=== PATIENT | male | born 1955 | race Caucasian/White ===

== ENCOUNTER → 2016-09-21 | Outpatient (CLI) | payer BC ==
[~2016-09-21] MED LIST: ATEN-173 PO; CHOL1TAB42 PO; DABI150C PO; FLEC100T21 PO; GLC500 PO; LPT/40 PO; MCRK20 PO; MULTTAB58 PO; OMEG10007 PO; RXC5 PO
--- NOTE | 2016-09-22 06:26 | SPLIT NIGHT TECHNICIAN REPORT ---
[facility] Split Night Polysomnogram - Broomcorn Sorter Report Study date: 09/21/2016 Referring Physician: KRISTEN SALGUERO DO, DO Name: TIGRE WHITT Broomcorn Sorter: HUSEYIN Hutchison. Date of : 1955 Height: 61 years, Height 6' 0" Sex: Male Weight: 135.7 kgs Age: 61 Neck Circum: 21 inches BMI: Medications: Atenolol, Atorvastatin, Fish Oil, Flecainide, Metformin, Pradaxa, Vitamin D Patient History 61 yr. old male here for a diagnostic sleep study. Patient complains of loud snoring and witnessed apneas. Patients [place] sleepiness scale score is 16/24. Parameters Monitored NPSG: E1-M2, E2-M1, Fp1-M2, Fp2-M1, F3-M2, F4-M2, F4-M1, C3-M2, C4-M2, C4-M1, O1-M2, O2-M2, O2-M1, T3-M2, T4-M1, P3-M2, P4-M1, CHIN1, CHIN2, HR, EKG, Legs, PFLOW, SNOR, FLOW, CFLOW, Tidal Volume, THOR, ABDO, SpO2, PLTH, CPRESS, ETCO2 Wave, ETCO2, pH SLEEP SUMMARY DATA DIAGNOSTIC TREATMENT Lights Out: 11:01:18 PM 1:51:18 AM Lights On: 1:43:18 AM 5:59:48 AM Total Recording Time (TRT): 162.0 min. 249.0 min. Total Sleep Time (TST): 124.0 min. 185.0 min. NREM Time: 105.0 min. 127.5 min. REM Time: 19.0 min. 57.5 min. Sleep Period Time (SPT): 130.0 min. 194.5 min. Sleep Efficiency (SE): 77 % 74 % Sleep Latency: 32.0 min. 54.0 min. Arousal Index: 9.2 4.9 PAP Treatment Levels: 4, 5, 6, 7, 8 * Optimal Pressure(s) SLEEP STAGING DATA DIAGNOSTIC TREATMENT Duration (min) TST % Duration (min) TST % Stage Wake: 38.0 min. -- 63.5 min. -- WASO: 6.0 min. -- 9.5 min. -- NREM: 105.0 min. 85 % 127.5 min. 69 % Stage N1: 10.5 min. 8 % 17.5 min. 9 % Stage N2: 88.0 min. 71 % 86.5 min. 47 % Stage N3: 6.5 min. 5 % 23.5 min. 13 % REM: 19.0 min. 15 % 57.5 min. 31 % POSITIONAL DATA Event Count Index Event Count Index Supine: 25 95.7 1 1.6 Supine NREM: 25 95.7 1 1.6 Supine REM: N/A N/A N/A N/A Non-Supine: 25 13.8 18 7.3 Non-Supine NREM: 12 8.1 8 5.3 Non-Supine REM: 13 41.1 10 10.4 AROUSAL SUMMARY DATA: Event Count Index Event Count Index Apnea Arousals: 8 7.7 0 0.0 Hypopnea Arousals: 1 0.5 5 1.6 Snore Arousals: 4 1.9 3 1.0 PLM Arousals: 3 1.5 2 0.6 Non-Specific Arousals: 0 0.0 1 0.3 Total Arousals: 19 9.2 15 4.9 MYOCLONUS (PLM) Event Count Index Event Count Index PLM: 206 99.7 20 6.5 PLM AROUSAL: 3 1.5 2 0.6 PLM W/O AROUSAL 206 99.7 18 5.8 PLM W/RESP EVENT 4 0.0 0 0.0 MYOCLONUS (PLM) Event Count Index Event Count Index LM: 3 18.4 30 9.7 LM AROUSAL: 3 1.5 5 1.6 LM W/O AROUSAL LM W/RESP EVENT LM NON SPECIFIC 213 103.1 41 13.3 HEART RATE DATA DIAGNOSTIC TREATMENT Sleep (bpm): 59 59 REM (bpm): 84 92 NREM (bpm): 91 92 Tachycardia Count: 0 0 Tachycardia Duration: 0.00 0 Bradycardia Count: 0 0 Bradycardia Duration: 0.00 0 DIAGNOSTIC PORTION TREATMENT PORTION RESPIRATORY DATA Event Count Index Event Count Index AHI: -- 24.2 -- 6.2 RDI: -- 24.2 -- 6 Obstructive Apnea: 16 7.7 0 0.0 Central Apnea: 0 0.0 0 0.0 Mixed Apnea: 0 0.0 0 0.0 Hypopnea: 34 16.5 19 6.2 RERA: 0 0.0 0 0.0 Total Apneas: 16 7.7 0 0.0 RESPIRATORY DATA REM NREM SLEEP REM NREM SLEEP Supine Position: Obstructive Apneas: N/A 16 16 N/A 0 0 Central Apneas: N/A 0 0 N/A 0 0 Mixed Apneas: N/A 0 0 N/A 0 0 Hypopneas: N/A 9 9 N/A 1 1 RERA N/A 0 0 N/A 0 0 Total Supine Events: N/A 25 25 N/A 1 1 Supine AHI: N/A 95.7 95.7 N/A 1.6 1.6 Supine RDI: N/A 95.7 95.7 N/A 1.6 1.6 REM NREM SLEEP REM NREM SLEEP Non-Supine Position: Obstructive Apneas: 0 0 0 0 0 0 Central Apneas: 0 0 0 0 0 0 Mixed Apneas: 0 0 0 0 0 0 Hypopneas: 13 12 25 10 8 18 RERA 0 0 0 0 0 0 Total Supine Events: 13 12 25 10 8 18 Supine AHI: 41.1 8.1 13.8 10.4 5.3 7.3 Supine RDI: 41.1 8.1 13.8 10.4 5.3 7.3 OXYGEN DESTAURATION DATA: Event Count Index Event Count Index REM Desaturations: 17 53.7 11 11.5 NREM Desaturations: 38 21.7 17 8.0 SNORE DATA DIAGNOSTIC TREATMENT Snore Time: 17.0 2:45:18 AM Snore TST%: 7 10 Snore Arousal Count: 4 3 Snore Arousal Index: 1.9 1.0 Desaturation Event Summary: Minimum %SpO2 Event Count Mean/Min/Max Duration(sec.) Desaturation Index % Time In Bed > 90 99 24.2 / 4.0 / 58.3 18.7 77.7 86 - 90 14 29.5 / 11.0 / 59.0 11.3 18.2 81 - 85 10 22.7 / 7.8 / 52.5 50.5 2.9 76 - 80 3 24.3 / 7.8 / 52.0 39.3 1.1 71 - 75 0 N/A 0.0 0.0 66 - 70 0 N/A 0.0 0.0 61 - 65 0 N/A 0.0 0.0 56 - 60 0 N/A 0.0 0.0 51 - 55 0 N/A 0.0 0.0 < 50 0 N/A 0.0 0.0 OXYGEN SATURATION DATA DIAGNOSTIC TREATMENT SpO2 Mean Sleep: 90 % 92 % SpO2 Mean REM: 84 % 92 % SpO2 Mean NREM: 91 % 92 % SpO2 Minimum Sleep: 74 % 81 % SpO2 Minimum REM: 74 % 81 % SpO2 Minimum NREM: 82 % 87 % Time Below 90% (TST): 24.5 9.2 Time Below 88% (TST): 17.8 4.1 Total REM NREM Awake <50% 0.0 min. 0.0 min. 0.0 min. 0.0 min. 51 - 60% 0.0 min. 0.0 min. 0.0 min. 0.0 min. 61 - 70% 0.0 min. 0.0 min. 0.0 min. 0.0 min. 71 - 80% 4.7 min. 4.7 min. 0.0 min. 0.0 min. 81 - 90% 86.4 min. 22.6 min. 57.7 min. 6.0 min. 91 - 100% 318.3 min. 49.1 min. 174.8 min. 94.4 min. Average 92 90 92 94 Minimum SpO2 74 74 82 84 Desaturation Event Index 17.1 22.0 14.2 20.7 # Desat. Events below 89% 44 22 18 4 Time(%) with Saturation below 89% 6.4 5.3 0.9 0.2 Time(min.) with Saturation below 89% 26.1 21.7 3.5 0.9 Recording Broomcorn Sorter Comments: Mr. Whitt slept in the right, left, and supine positions. No cardiac arrhythmia. PLMs noted. No bruxism noted. Snoring was noted and scored as a 3 on a scale of 0 through 5. (0=no snoring, 5=snoring loud enough to be heard through a closed door or down the [address]acy way) At 1:51 am , Mr. Whitt met specific Split-Night criteria during the diagnostic portion of this study. CPAP was initiated at +4 CMH2O room air and up-titrated to a level of +8 CMH2O Cflex 2 . A ResMed fox FX wide nasal mask , was used during titration. Mr. Whitt did not wake to use the restroom during the night. Mr. Whitt stated, The mask took some getting used to, but finally got to sleep. The final report will be interpreted and signed by a sleep physician. The completed physician report will then be placed in the patient medical record. Therapy Event: Therapy (cm H20) 0 4 5 6 7 8 Total Time at Pressure (min.) 162.0 92.9 54.6 7.0 44.1 49.9 TST at Pressure (min.) 124.0 31.9 53.6 7.0 43.6 48.9 # Periods 1 1 1 1 1 1 Sleep Onset (min.) 32.0 54.0 0.0 0.0 0.0 0.0 REM Onset (min.) 143.0 N/A 44.6 0.0 0.0 N/A Sleep Efficiency % 76 34 98 100 98 98 Wakefulness (%) 23.5 65.7 1.8 0.0 1.1 2.0 Wakefulness (min.) 38.0 61.0 1.0 0.0 0.5 1.0 NREM 1 (%) 6.5 11.3 1.8 0.0 5.8 6.9 NREM 1 (min.) 10.5 10.5 1.0 0.0 2.6 3.4 NREM 2 (%) 54.3 23.0 57.0 0.0 1.1 67.1 NREM 2 (min.) 88.0 21.4 31.1 0.0 0.5 33.5 NREM 3 (%) 4.0 0.0 21.1 0.0 0.0 24.0 NREM 3 (min.) 6.5 0.0 11.5 0.0 0.0 12.0 REM (%) 11.7 0.0 18.3 100.0 91.9 0.0 REM (min.) 19.0 0.0 10.0 7.0 40.5 0.0 # Arousals 19 5 1 0 7 2 Arousal Index 9.2 9.4 1.1 0.0 9.6 2.5 # Snore 706 153 480 37 19 9 Snore Index 341.6 287.9 537.0 319.3 26.1 11.0 AHI 24.2 15.1 6.7 0.0 5.5 1.2 AHI Supine 95.7 N/A N/A N/A N/A 1.6 AHI Non-Supine 13.8 15.1 6.7 0.0 5.5 0.0 NREM AHI 21.1 15.1 0.0 N/A 0.0 1.2 REM AHI 41.1 N/A 36.0 0.0 5.9 N/A RDI 24.2 15.1 6.7 0.0 5.5 1.2 # Obstructive 16 0 0 0 0 0 # Central Ap 0 0 0 0 0 0 # Mixed 0 0 0 0 0 0 # Hypopneas 34 8 6 0 4 1 RERAS 0 0 0 0 0 0 Total Respiratory Events 50 8 6 0 4 1 Time Below SpO2 89.00% (min.) 19.3 0.2 4.8 1.0 0.0 0.0 Mean NREM SpO2 (%) 91 92 93 N/A 94 92 Mean REM SpO2 (%) 84 N/A 88 91 93 N/A Mean Sleep SpO2 (%) 90 92 92 91 93 92 Min NREM SpO2 (%) 82 87 91 N/A 91 89 Min REM SpO2 (%) 74 N/A 81 85 90 N/A Position Supine (min.) 15.7 0.0 0.0 0.0 0.0 36.4 Position Non-supine (min.) 108.3 31.9 53.6 7.0 43.6 12.5 LM Index Sleep 118.1 20.7 22.4 8.6 13.8 9.8 LM Index NREM 133.1 20.7 26.1 N/A 39.1 9.8 LM Index REM 34.7 N/A 6.0 8.6 11.8 N/A Mean Heart Rate (bpm) 59 59 59 61 60 56 Min Heart Rate (bpm) 53 55 55 59 54 51
--- NOTE | 2016-09-23 08:24 | POLYSOMNOGRAPH REPORT ---
CLINICAL DATA: The patient is a 61-year-old male who has chief complaints of snoring and observed apneas. He has a history of atrial fibrillation, diabetes and hypertension. His BMI is severely elevated at 40.6. His [place] Sleepiness Score is 16 out of a possible 24. SLEEP ARCHITECTURE: During the diagnostic portion of the study, the patient had a sleep period time of 130 minutes and a total sleep time of 124 minutes. The sleep latency was modestly prolonged at 32 minutes. There were 105 minutes during non-REM sleep and 19 minutes during REM sleep. Sleep consisted of stage N1 8%, stage N2 71%, stage N3 5%, and stage REM 15%. The arousal index was 9.2. During the therapeutic portion of the study when the patient was treated with nasal CPAP the sleep period time was 194.5 minutes. Total sleep time was 185 minutes. Sleep efficiency was 74%. The sleep latency was 54 minutes. Sleep consisted of stage N1 9%, stage N2 47%, stage N3 13%, and stage REM 31%. AROUSAL DATA: During the diagnostic portion of the study, the patient had a total of 19 arousals including 8 apnea arousals, 1 hypopnea arousal, 4 snoring arousals and 3 PLM arousals. The arousal index was 9.2. During the therapeutic portion of the study, the patient had 15 arousals including 5 hypopnea arousals, 3 snoring arousals, 2 PLM arousals, and 1 nonspecific arousal. The arousal index was 4.9. PLM DATA: During the diagnostic portion of the study, the patient had a total of 206 PLMs for an index of 99.7. During the therapeutic portion of the study the patient had a total of 20 PLMs for an index of 6.5. EKG: The cardiac rates ranged from 59-92 beats per minute. The rhythm was normal sinus. No arrhythmia was noted. RESPIRATORY DATA: During the diagnostic portion of the study, the patient had a total of 16 obstructive apneas and 34 hypopneas for an apnea hypopnea index of 24.2 events per hour. This would reflect moderate sleep apnea. During the therapeutic portion of the study, the patient had a total of 19 hypopneas with 0 apneas. The apnea hypopnea index was 6.2 events per hour. At the final pressure of 8 cm the patient had an apnea hypopnea index of only 1.2 events per hour. OXIMETRY DATA: During the diagnostic portion of the study, the mean saturation was 90%. The lowest saturation was 74% on this did occur during REM sleep. There was a total of 17.8 minutes with saturations less than 88%. During the therapeutic portion of the study, the mean saturation was 92%. The minimum saturation was 81%, again during REM sleep. There was only 4.1 minutes with saturations less than 88%. SCOURER'S COMMENTS AND TREATMENT SUMMARY: The patient slept in the right, left, and supine positions. PLMs were noted. No bruxism was noted. Snoring was noted and scored as a 3 on a scale of 0 through 5. The patient met specific split night criteria during the diagnostic portion of the study. CPAP was initiated at 4 cm and up titrated to a level of 8 cm. IMPRESSIONS: 1. Obstructive sleep apnea -- moderate -- resolved with nasal CPAP at 8 cm. 2. Periodic limb movement disorder. COMMENTS: The patient underwent a split night study because he had significant obstructive sleep apnea. He had multiple comorbidities for sleep apnea including hypertension, diabetes, and paroxysmal atrial fibrillation. He had difficulty initiating sleep once CPAP was started. Ultimately, he did fall asleep then slept well thereafter. There was some degree of REM rebound. His sleep was fairly well consolidated. At the final pressure he had no significant sleep apnea. RECOMMENDATIONS: 1. It is advised that the patient be treated with nasal CPAP at 8 cm with C-Flex at +2. 2. He is to be started on a ResMed [place] FX wide nasal mask. 3. Await reduction program is advised in light of the elevation of body mass index. 4. If possible the patient should avoid sleeping in the supine position. 5. The patient's given history is that he has a dog who sleeps on the bed with him and disturbs his sleep. It would be suggested that the dog not be allowed onto his bed. 6. It is advised that the patient should avoid alcohol for approximately 3-4 hours before bed. 7. The patient should be seen in followup between 30 and 90 days after receiving his CPAP. JONES
== END | disposition home or self-care (01) ==
LOC: C.NEUR 20:00
PROVIDERS: ATTEND Internal Medicine Pulmonary Disease
DX: G47.33 Obstructive sleep apnea (adult) (pediatric) (principal)

== ENCOUNTER → 2016-10-06 | Outpatient (CLI) | payer BC ==
[~2016-10-06] VITALS: Ht 182.9 cm; Wt 137.8 kg
[2016-10-06 11:28] VITALS: BP 166/88; PULSE 71; Ht 182.9 cm; Wt 137.8 kg
== END | disposition home or self-care (01) ==
LOC: C.NEUR 11:22
PROVIDERS: ATTEND Internal Medicine Pulmonary Disease
DX: G47.33 Obstructive sleep apnea (adult) (pediatric) (principal); E66.9 Obesity, unspecified

== ENCOUNTER → 2016-11-01 | Day surgery (SDC) | payer BC ==
[2016-10-25 13:03] VITALS: Ht 182.9 cm; Wt 133.2 kg
[~2016-11-01] VITALS: Ht 182.9 cm; Wt 133.2 kg
[~2016-11-01] MED LIST changes: +LIDOCAINE HCL 2% 2 ML VIAL (20MG/ML) ONE; -MCRK20 PO; +MIDAZOLAM HCL 1 MG/ML 2ML VIAL ONE; +PROPOFOL IV EMULSION 10 MG/ML 20 ML VIAL IV ONE; -RXC5 PO; +SODIUM CHLORIDE 0.9% 500ML 500 ML IV ONE
--- NOTE | 2016-11-01 15:06 | Endo History and Physical ---
History & Physical Date of Service: Nov 01, 2016. Chief Complaint: history of polyps Referring Physician: MAHSA Mills III History of Present Illness 61 yo CM who presents for history of colon polyps. Past Medical History Atrial Fibrillation Past Surgical History Hx Cardiac Surgery: No Hx Internal Defibrillator: No Hx Pacemaker: No Hx Abdominal Surgery: No Hx of Implantable Prosthesis: No Hx Post-Op Nausea and Vomiting: No Hx Cancer Surgery: No Hx Thoracic Surgery: No Hx Orthopedic: No Hx Urinary Tract Surgery: No Family History None Social History Smoking Status: Former Smoker Hx Substance Use: No Hx Alcohol Use: Yes (1 CASE BEER/WEEK) Allergies Coded Allergies: Clarithromycin (Verified Allergy, Mild, HALLUCINATIONS, 10/25/16) Current Medications Reported Home Medications Medications Dose Route/Sig Max Daily Dose Days Date Category Multivitamin (Multiple Vitamin) 1 Tab Tab 1 Tab PO QAM 10/25/16 Reported Vitamin D (Cholecalciferol) 5,000 Unit Tab 1 Tab PO QAM 10/25/16 Reported [place]-3 (Fish Oil) 1 Ea Cap 1 Cap PO BID 10/25/16 Reported Metformin HCl 500 Mg Tab 1 Tab PO BID 10/25/16 Reported Tenormin (Atenolol) 25 Mg Tab 2 Tabs PO QAM 10/25/16 Reported Tenormin (Atenolol) 25 Mg Tab 25 Mg PO QPM 10/25/16 Reported Lipitor (Atorvastatin) 40 Mg Tab 40 Mg PO HS 04/23/13 Reported Pradaxa (Dabigatran Etexilate Mesylate) 150 Mg Cap 150 Mg PO BID 04/23/13 Reported Tambocor (Flecainide Acetate) 100 Mg Tab 100 Mg PO BID 04/23/13 Reported Vital Signs Weight (Kilograms): 133.18 Height (Feet): 6 Height (Inches): 0 Date Time Temp Pulse Resp B/P Pulse Ox O2 Delivery O2 Flow Rate FiO2 11/01/16 14:27 37 74 96 185/91 96 Room Air Physical Exam General Appearance: WD/WN, no apparent distress Respiratory/Chest: Auscultation: breath sounds normal Cardiovascular: Heart Auscultation: RRR Abdomen: Bowel Sounds: normal Inspection & Palpation: soft, non-distended, no tenderness, guarding & rebound Assessment and Plan Assessment: 61 yo CM who presents for history of colon polyps. Plan: Proceed with colonoscopy.
--- NOTE | 2016-11-01 16:00 | GI REPORT ---
Procedure Date: 11/01/2016 3:31 PM Procedure: Colonoscopy Indications: High risk colon cancer surveillance: Personal history of colonic polyps Medicines: Monitored Anesthesia Care Complications: No immediate complications. Estimated Blood Loss: Estimated blood loss: none. Procedure: Pre-Anesthesia Assessment: - Prior to the procedure, a History and Physical was performed, and patient medications and allergies were reviewed. The patient's tolerance of previous anesthesia was also reviewed. The risks and benefits of the procedure and the sedation options and risks were discussed with the patient. All questions were answered, and informed consent was obtained. Prior Anticoagulants: The patient has taken no previous anticoagulant or antiplatelet agents. ASA Grade Assessment: III - A patient with severe systemic disease. After reviewing the risks and benefits, the patient was deemed in satisfactory condition to undergo the procedure. After I obtained informed consent, the scope was passed under direct vision. Throughout the procedure, the patient's blood pressure, pulse, and oxygen saturations were monitored continuously. The Scope was introduced through the anus and advanced to the terminal ileum. The colonoscopy was performed without difficulty. The patient tolerated the procedure well. The quality of the bowel preparation was good. The terminal ileum, ileocecal valve, appendiceal orifice, and rectum were photographed. Findings: Five sessile polyps were found in the rectum, in the sigmoid colon and in the transverse colon. The polyps were 5 to 7 mm in size. These polyps were removed with a hot snare. Resection and retrieval were complete. Non-bleeding internal hemorrhoids were found during retroflexion. The hemorrhoids were small. Impression: - Five 5 to 7 mm polyps in the rectum, in the sigmoid colon and in the transverse colon, removed with a hot snare. Resected and retrieved. - Non-bleeding internal hemorrhoids. Recommendation: - Resume previous diet. - Continue present medications. - Repeat colonoscopy for surveillance based on pathology results. - Return to primary care physician as previously scheduled. Paul Berg, 11/01/2016 3:59:37 PM This report has been signed electronically. Note Initiated On: 11/01/2016 3:31 PM I attest to the content of the Intraoperative Record and orders documented therein, exceptions below
--- NOTE | 2016-11-01 16:01 | Discharge Instructions ---
Endoscopy Patient Instructions Date / Procedure(s) Performed Nov 01, 2016. Colonoscopy Allergy Information Coded Allergies: Clarithromycin (Verified Allergy, Mild, HALLUCINATIONS, 10/25/16) Discharge Date / Findings Nov 01, 2016. Colon polyps Rectal polyp Internal hemorrhoids Medication Instructions Stopped Medication(s): last dose Pradaxa Tuesday 08:00 OK to resume all medications today as prescribed Reported Home Medications Medications Dose Route/Sig Max Daily Dose Days Date Category Multivitamin (Multiple Vitamin) 1 Tab Tab 1 Tab PO QAM 10/25/16 Reported Vitamin D (Cholecalciferol) 5,000 Unit Tab 1 Tab PO QAM 10/25/16 Reported [place]-3 (Fish Oil) 1 Ea Cap 1 Cap PO BID 10/25/16 Reported Metformin HCl 500 Mg Tab 1 Tab PO BID 10/25/16 Reported Tenormin (Atenolol) 25 Mg Tab 2 Tabs PO QAM 10/25/16 Reported Tenormin (Atenolol) 25 Mg Tab 25 Mg PO QPM 10/25/16 Reported Lipitor (Atorvastatin) 40 Mg Tab 40 Mg PO HS 04/23/13 Reported Pradaxa (Dabigatran Etexilate Mesylate) 150 Mg Cap 150 Mg PO BID 04/23/13 Reported Tambocor (Flecainide Acetate) 100 Mg Tab 100 Mg PO BID 04/23/13 Reported Provider Instructions Activity Restrictions - No exercising or heavy lifting for 24 hours. - Do not drink alcohol the day of the procedure. - Do not drive a car or operate machinery until the day after the procedure. - Do not make any important decisions or sign important papers in 24 hours after the procedure. Following Day: - Return to full activity which may include returning to work/school. Diet Start your diet with liquids and light foods (jello, soup, juice, toast). Then eat your usual diet if not nauseated. Treatment For Common After Affects For mild abdominal pain, bloating, or excessive gas: - Rest - Eat lightly - Lie on right side Follow-Up Information Follow-up with MAHSA Mills III as scheduled Anesthesia Information What You Should Know You have had a procedure that required some medicine to reduce anxiety and discomfort. This treatment is called moderate sedation. After receiving the treatment, you may be sleepy, but you will be able to breathe on your own. The effects of the treatment may last for several hours. Follow these instructions along with Activity/Diet recommendations noted above: * Do NOT do anything where dizziness or clumsiness would be dangerous. * Rest quietly at home today, then you can be up and about tomorrow. * Have a responsible person stay with you the rest of today. * You may have had an I.V. today. If so, you may take the dressing off later today. Recommendations Call your doctor if: * Trouble breathing * Continuous vomiting for more than 24 hours * Temperature above 101 degrees * Severe abdominal pain or bloating * Pain not relieved by pain medicine ordered * There is increased drainage or redness from any incision * A large amount of rectal bleeding greater than 2-3 tablespoons. (If you had a polyp/s removed or have hemorrhoids, a small amount of blood - from the rectum is to be expected.) * You have any unanswered questions or concerns. IN THE EVENT OF A SERIOUS EMERGENCY, GO TO THE NEAREST EMERGENCY ROOM Your discharge instructions were prepared by provider Paul Berg. Patient Instructions Signature Page Seferino Whitt Patient (or Guardian) Signature/Date: I have read and understand the instructions given to me by my caregivers. Caregiver/RN/Doctor Signature/Date: The above-named patient and/or guardian has received patient instructions on this date. + Original Patient Signature Page (only) stays with chart. Please make copy for patient.
[2016-11-01 16:28] VITALS: BP 153/76; PULSE 69; O2SAT 98
--- NOTE | 2016-11-01 17:11 | Anesthesiology Progress Note ---
Anesthesia Post Op Note Date & Time Nov 01, 2016 at 17:11 Vital Signs Pain Intensity: 0 Vital Signs Past 12 Hours Date Time Temp Pulse Resp B/P Pulse Ox O2 Delivery O2 Flow Rate FiO2 11/01/16 16:28 69 18 153/76 98 Room Air 11/01/16 16:14 67 18 148/79 98 Room Air 11/01/16 16:01 70 98 141/64 98 Room Air 11/01/16 14:27 37 74 96 185/91 96 Room Air Notes Mental Status: alert / awake / arousable, participated in evaluation Pt Amnestic to Procedure: Yes Nausea / Vomiting: adequately controlled Pain: adequately controlled Airway Patency, RR, SpO2: stable & adequate BP & HR: stable & adequate Hydration State: stable & adequate Anesthetic Complications: no major complications apparent
== END | disposition home or self-care (01) ==
LOC: C.GI 14:09
PROVIDERS: ATTEND Internal Medicine
DX: Z12.11 Encounter for screening for malignant neoplasm of colon (principal); D12.3 Benign neoplasm of transverse colon; K63.5 Polyp of colon; K62.1 Rectal polyp; K64.8 Other hemorrhoids; Z87.891 Personal history of nicotine dependence

== ENCOUNTER → 2016-12-15 | Outpatient (CLI) | payer BC ==
[~2016-12-15] VITALS: Ht 182.9 cm; Wt 139.3 kg
[~2016-12-15] MED LIST changes: -LIDOCAINE HCL 2% 2 ML VIAL (20MG/ML) ONE; -MIDAZOLAM HCL 1 MG/ML 2ML VIAL ONE; -PROPOFOL IV EMULSION 10 MG/ML 20 ML VIAL IV ONE; -SODIUM CHLORIDE 0.9% 500ML 500 ML IV ONE
[2016-12-15 10:06] VITALS: BP 147/78; PULSE 71; Ht 182.9 cm; Wt 139.3 kg
== END | disposition home or self-care (01) ==
LOC: C.NEUR 09:43
PROVIDERS: ATTEND Internal Medicine Pulmonary Disease
DX: G47.33 Obstructive sleep apnea (adult) (pediatric) (principal); E66.9 Obesity, unspecified

== ENCOUNTER → 2016-12-28 | Outpatient (CLI) | payer BC ==
[2016-12-28 09:39] LABS: BASO % 0.2 %; BASO ABS # 0.01 K/uL (0-0.2); COMPLETE YES; EOS % 6.7 %; HEMATOCRIT 42.3 % (42-52); IG% 0.2 %; LYMPH % 26.7 %; LYMPH ABS # 1.11 K/uL (1.2-3.4); MEAN CORPUSCULAR HEMOGLOBIN 33.1 pg (25-34); MEAN CORPUSCULAR HGB CONC 33.1 g/dl (32-36); MEAN PLATELET VOLUME 9.3 fL (7.4-10.4); MONO % 10.1 %; NEUT % 56.1 %; PLATELET COUNT 207 K/uL (130-400); RED BLOOD COUNT 4.23 M/uL (4.7-6.1); WHITE BLOOD COUNT 4.15 K/uL (4.8-10.8)
[2016-12-28 09:53] LABS: ESTIMATED AVERAGE GLUCOSE 123 mg/dl; HA1C FLAG Normal (Normal)
[2016-12-28 09:59] LABS: ALT/SGPT 41 U/L (12-78); BLOOD UREA NITROGEN 21 mg/dl (7-18); BUN/CREATININE RATIO 21.7 (10-20); CARBON DIOXIDE 29 mmol/L (21-32); CHLORIDE 106 mmol/L (98-107); CHOLESTEROL 143 mg/dl (0-200); CREATININE 0.96 mg/dl (0.60-1.40); GLUCOSE 136 mg/dl (70-99); POTASSIUM 4.2 mmol/L (3.5-5.1); SODIUM 143 mmol/L (136-145)
[2016-12-28 10:01] LABS: ALB/GLOB RATIO 1.2 (0.9-2); ALKALINE PHOSPHATASE 72 U/L (45-117); AST/SGOT 22 U/L (15-37); CHOLESTEROL/HDL RATIO 3.2; HDL CHOLESTEROL 45 mg/dl; LDL CHOLESTEROL CALCULATED 68 mg/dl; TRIGLYCERIDES 152 mg/dl (0-150); VERY LOW DENSITY LIPOPROT CALC 30 mg/dl
[2016-12-28 10:05] LABS: CALCIUM 9.2 mg/dl (8.5-10.1)
== END | disposition home or self-care (01) ==
LOC: C.LAB1850 08:31
PROVIDERS: ATTEND Nurse Practitioner Family
DX: G47.33 Obstructive sleep apnea (adult) (pediatric) (principal); I10 Essential (primary) hypertension; E78.5 Hyperlipidemia, unspecified; I48.0 Paroxysmal atrial fibrillation; E88.81 Metabolic syndrome and other insulin resistance; E55.9 Vitamin D deficiency, unspecified; E11.9 Type 2 diabetes mellitus without complications; Z11.59 Encounter for screening for other viral diseases

== ENCOUNTER → 2017-03-23 | Outpatient (CLI) | payer BC ==
[~2017-03-23] VITALS: Ht 152.4 cm; Wt 98.0 kg
[2017-03-23 10:29] VITALS: BP 134/83; PULSE 63; BMI 40.5
[2017-03-23 11:57] VITALS: BP 100/65; PULSE 98; Ht 152.4 cm; Wt 98.0 kg
== END | disposition home or self-care (01) ==
LOC: C.NEUR 09:57
PROVIDERS: ATTEND Internal Medicine Pulmonary Disease
DX: G47.33 Obstructive sleep apnea (adult) (pediatric) (principal)

== ENCOUNTER → 2017-05-31 | Day surgery (SDC) | payer BC ==
[2017-03-17 11:04] VITALS: Ht 182.9 cm; Wt 133.2 kg
[~2017-05-31] VITALS: Ht 182.9 cm; Wt 133.2 kg
[~2017-05-31] MED LIST changes: +500ML BSS 0.3ML EPI 1:1000PF IRRIG ONE; +ACETAMINOPHEN 325 MG TAB PO PRN; +AMVISC PLUS 0.8ML SYRINGE INT OCU ONE; +ATROPINE SULFATE 0.1 MG/ML 5ML SYR IV PRN; +BSS FLUSH ONE; +CYCLOPENTOLATE HCL 1% OP SOLN PER DROP CHARGE OPL SCH; +EpHEDrine SULFATE INJ 50 MG/ML AMP IV PRN; +EpINEphrine INJ 1MG/ML AMP 1 MG/ML AMP ONE; +GATIFLOXACIN OP SOLN PER DROP CHARGE OPL SCH; +KETOROLAC 0.5% OP SOLN PER DROP CHARGE OPL SCH; +LACTATED RINGER'S 1000ML 500 ML IV SCH; +LIDOCAINE 3.5% OPH GEL PER APPLICATION CHARGE ONE; +LIDOCAINE HCL 1% MPF 2 ML VIAL ONE; +MIDAZOLAM HCL 1 MG/ML 2ML VIAL ONE; +OCUCOAT 1 ML SOLN IO ONE; +PHENYLEPHRINE HCL 2.5% OP SOLN PER DROP CHARGE OPL SCH; +POVIDONE-IODINE OP SOLN 30 ML BTL ONE; +PROPARACAINE 0.5% OP SOLN PER DROP CHARGE OPL SCH; +TOBRAMYCIN/DEXAMETHASONE OPH OINT PER APPLN CHARGE ONE; +TROPICAMIDE 1% OP SOLN PER DROP CHARGE OPL SCH
[2017-05-31] MEDS: PHENYLEPHRINE HCL 2.5% OP SOLN PER DROP CHARGE OPL SCH ×2 (06:41→07:00)
[2017-05-31] MEDS: TROPICAMIDE 1% OP SOLN PER DROP CHARGE OPL SCH ×2 (06:42→07:01)
[2017-05-31] MEDS: CYCLOPENTOLATE HCL 1% OP SOLN PER DROP CHARGE OPL SCH ×2 (06:43→07:02)
[2017-05-31] MEDS: KETOROLAC 0.5% OP SOLN PER DROP CHARGE OPL SCH ×2 (06:44→07:03)
[2017-05-31] MEDS: GATIFLOXACIN OP SOLN PER DROP CHARGE OPL SCH ×2 (06:45→07:05)
--- NOTE | 2017-05-31 07:00 | History & Physical Bridge - SC ---
H&P Re-Evaluation Bridge Note: I have examined the patient, reviewed the History & Physical and in the interval since the performance of the History & Physical I have noted the following changes of clinical significance: Diagnosis: Left Cataract Procedure: Left Cataract Removal with Lens Implant No changes noted
--- NOTE | 2017-05-31 07:44 | Discharge Instructions-SurgCtr ---
Discharge Instructions Date of Service May 31, 2017. Visit Reason for Visit: Cataract Left Eye Discharge Discharge Diagnosis / Problem: cataract Discharge Goals Goal(s): Improve function Medications Stopped Medications Name(s): METFORMIN HELD FOR THREE DAYS Activity Recommendations Activity Limitations: per Instructions/Follow-up section Anesthesia . Post Anesthesia Instructions: If you have had General Anesthesia or IV Sedation: * Do not drive today. * Resume driving when surgeon permits. * Do not make important decisions or sign legal documents today. * Call surgeon for: 1. Temperature elevations greater than 101 degrees F. 2. Uncontrollable pain. 3. Excessive bleeding. 4. Persistent nausea and vomiting. 5. Medication intolerance (nausea, vomiting or rash). * For nausea and vomiting use only clear liquids such as: tea, soda, bouillon until nausea subsides, then gradually increase diet as tolerated. * If you have any concerns or questions, call your surgeon's office. If physician is unavailable and it is an emergency, call 911 or go to the nearest emergency room. . Diet Recommendations Home Diet: resume previous diet Procedures Procedures Performed: Left Cataract Phacoemulsification With Intraocular Lens Implant Pending Studies Studies pending at discharge: no Medical Emergencies . Who to Call and When: Medical Emergencies: If at any time you feel your situation is an emergency, please call 911 immediately. . Non-Emergent Contact Non-Emergency issues call your: Inspectors And Regulatory Officers . . "Provider Documentation" section prepared by Kemal Franklin. .
--- NOTE | 2017-05-31 07:45 | [facility] Operative Report ---
Operative Report Date of Service May 31, 2017. Operative Report 1. PREOPERATIVE DIAGNOSIS: Cataract of the left eye. 2. POSTOPERATIVE DIAGNOSIS: Same. 3. PROCEDURE: Phacoemulsification with intraocular lens implantation of the left eye. SURGEON: Dr. Kemal Franklin. ANESTHESIA: Topical Lidocaine gel, 1% Non- Preserved intracameral Lidocaine, and monitored intravenous sedation. INDICATIONS FOR THE PROCEDURE: The patient is a 62 - year-old male with a history of cataract of the left eye causing significant visual impairment. The details of the proposed procedure were explained to the patient who asked appropriate questions and following discussion of all risks, benefits and alternatives agreed to have the procedure done. 4. OPERATION AND FINDINGS: DESCRIPTION OF PROCEDURE: After informed consent was obtained, the patient was brought to the Operating Room at the [facility]. The patient was placed in a supine position and then the left eye was prepped and draped in the usual sterile fashion for intraocular surgery. A drop of topical Lidocaine gel was placed in the operative eye. A wire lid speculum was then placed in the fornices. A corneal paracentesis was then created temporally. The Non-Preserved Lidocaine was then instilled into the anterior chamber. The anterior chamber was then pressurized with viscoelastic. A 2.0 mm clear corneal incision was then created temporally. A cystotome was inserted into the anterior chamber and used to create a tear in the anterior lens capsule. This capsular tear was then used to create a small flap and the flap was dragged in a counterclockwise direction in order to create a continuous curvilinear capsulorrhexis. Hydrodissection was accomplished with balanced salt solution. Phacoemulsification of the lens nucleus was then performed in a standard [id number] technique. The phaco time was 22 seconds with an average power of 7 %. The remaining cortical material was removed using irrigation aspiration. The capsular bag was then filled with viscoelastic. A B &L [id number] +15.0 diopters lens was then loaded into the injector and injected into the capsular bag. The remaining viscoelastic was removed with the irrigation aspiration handpiece. The wound was hydrated and then checked and found to be watertight. The intraocular pressure was checked and found to be adequate. The wire lid speculum was removed and the patient's face was cleaned and dried. TobraDex ointment was placed in the inferior fornix. The patient was discharged to the Recovery Room having tolerated the procedure well. There were no complications. The patient will be seen tomorrow in the office for follow-up. I attest to the content of the Intraoperative Record and any orders documented therein. Any exceptions are noted below.
[2017-05-31 07:46] VITALS: TEMP 36.7
--- NOTE | 2017-05-31 07:56 | Anesthesia Progress Nt - [facility] ---
Anesthesia Post Op Note Date & Time May 31, 2017 at 07:56 Vital Signs Pain Intensity: 0 Vital Signs Past 12 Hours Date Time Temp Pulse Resp B/P (MAP) Pulse Ox O2 Delivery O2 Flow Rate FiO2 05/31/17 07:46 36.7 69 16 153/85 (107) 95 Room Air 05/31/17 07:06 37.2 71 18 164/93 (116) 94 Room Air Notes Mental Status: alert / awake / arousable, participated in evaluation Pt Amnestic to Procedure: Yes Nausea / Vomiting: adequately controlled Pain: adequately controlled Airway Patency, RR, SpO2: stable & adequate BP & HR: stable & adequate Hydration State: stable & adequate Anesthetic Complications: no major complications apparent
[2017-05-31 08:11] VITALS: BP 165/88; PULSE 61; O2SAT 99
== END | disposition home or self-care (01) ==
LOC: X.SURG 06:15
PROVIDERS: ATTEND Ophthalmology
DX: H25.9 Unspecified age-related cataract (principal); I10 Essential (primary) hypertension; E78.5 Hyperlipidemia, unspecified; E11.36 Type 2 diabetes mellitus with diabetic cataract; E66.9 Obesity, unspecified; Z79.84 Long term (current) use of oral hypoglycemic drugs; Z79.01 Long term (current) use of anticoagulants; Z79.899 Other long term (current) drug therapy

== ENCOUNTER → 2017-07-13 | Outpatient (CLI) | payer BC ==
[~2017-07-13] MED LIST changes: -500ML BSS 0.3ML EPI 1:1000PF IRRIG ONE; -ACETAMINOPHEN 325 MG TAB PO PRN; -AMVISC PLUS 0.8ML SYRINGE INT OCU ONE; -ATROPINE SULFATE 0.1 MG/ML 5ML SYR IV PRN; -BSS FLUSH ONE; -CYCLOPENTOLATE HCL 1% OP SOLN PER DROP CHARGE OPL SCH; -EpHEDrine SULFATE INJ 50 MG/ML AMP IV PRN; -EpINEphrine INJ 1MG/ML AMP 1 MG/ML AMP ONE; -GATIFLOXACIN OP SOLN PER DROP CHARGE OPL SCH; -KETOROLAC 0.5% OP SOLN PER DROP CHARGE OPL SCH; -LACTATED RINGER'S 1000ML 500 ML IV SCH; -LIDOCAINE 3.5% OPH GEL PER APPLICATION CHARGE ONE; -LIDOCAINE HCL 1% MPF 2 ML VIAL ONE; -MIDAZOLAM HCL 1 MG/ML 2ML VIAL ONE; -OCUCOAT 1 ML SOLN IO ONE; -PHENYLEPHRINE HCL 2.5% OP SOLN PER DROP CHARGE OPL SCH; -POVIDONE-IODINE OP SOLN 30 ML BTL ONE; -PROPARACAINE 0.5% OP SOLN PER DROP CHARGE OPL SCH; -TOBRAMYCIN/DEXAMETHASONE OPH OINT PER APPLN CHARGE ONE; -TROPICAMIDE 1% OP SOLN PER DROP CHARGE OPL SCH
[2017-07-13 12:24] LABS: BASO % 0.3 %; BASO ABS # 0.02 K/uL (0-0.2); COMPLETE YES; EOS % 3.4 %; HEMATOCRIT 45.4 % (42-52); IG% 0.1 %; LYMPH % 16.2 %; LYMPH ABS # 1.09 K/uL (1.2-3.4); MEAN CELL VOLUME 98.3 fL (80-100); MEAN CORPUSCULAR HEMOGLOBIN 33.5 pg (25-34); MEAN CORPUSCULAR HGB CONC 34.1 g/dl (32-36); MEAN PLATELET VOLUME 9.8 fL (7.4-10.4); MONO % 8.9 %; NEUT % 71.1 %; PLATELET COUNT 213 K/uL (130-400); RED BLOOD COUNT 4.62 M/uL (4.7-6.1); WHITE BLOOD COUNT 6.73 K/uL (4.8-10.8)
[2017-07-13 12:48] LABS: ALT/SGPT 33 U/L (12-78); AST/SGOT 16 U/L (15-37); BLOOD UREA NITROGEN 15 mg/dl (7-18); BUN/CREATININE RATIO 15.9 (10-20); CALCIUM 8.8 mg/dl (8.5-10.1); CARBON DIOXIDE 24 mmol/L (21-32); CHLORIDE 109 mmol/L (98-107); CREATININE 0.97 mg/dl (0.60-1.40); GLUCOSE 119 mg/dl (70-99); POTASSIUM 4.1 mmol/L (3.5-5.1); SODIUM 141 mmol/L (136-145)
[2017-07-13 12:50] LABS: ALB/GLOB RATIO 1.1 (0.9-2); ALKALINE PHOSPHATASE 80 U/L (45-117); CHOLESTEROL 151 mg/dl (0-200); HDL CHOLESTEROL 50 mg/dl; LDL CHOLESTEROL CALCULATED 84 mg/dl; TRIGLYCERIDES 85 mg/dl (0-150); VERY LOW DENSITY LIPOPROT CALC 17 mg/dl
[2017-07-13 12:56] LABS: RATIO 6.5 mcg/mg (0-30.0)
[2017-07-13 12:59] LABS: ESTIMATED AVERAGE GLUCOSE 123 mg/dl; HA1C FLAG Normal (Normal)
== END | disposition home or self-care (01) ==
LOC: C.LAB1850 10:20
PROVIDERS: ATTEND Nurse Practitioner Family
DX: G47.33 Obstructive sleep apnea (adult) (pediatric) (principal); I10 Essential (primary) hypertension; E78.5 Hyperlipidemia, unspecified; E88.81 Metabolic syndrome and other insulin resistance; I48.0 Paroxysmal atrial fibrillation; E55.9 Vitamin D deficiency, unspecified; E11.9 Type 2 diabetes mellitus without complications

== ENCOUNTER → 2018-01-19 | Outpatient (CLI) | payer OTHER ==
[2018-01-19 14:49] LABS: BASO % 0.2 %; BASO ABS # 0.01 K/uL (0-0.2); EOS % 2.8 %; EOS ABS # 0.18 K/uL (0-0.5); HEMATOCRIT 41.8 % (42-52); HEMOGLOBIN 14.7 g/dL (14.0-18.0); IG# 0.01 K/uL (0.00-0.02); LYMPH % 20.8 %; LYMPH ABS # 1.34 K/uL (1.2-3.4); MEAN CELL VOLUME 96.3 fL (80-100); MEAN CORPUSCULAR HEMOGLOBIN 33.9 pg (25-34); MEAN CORPUSCULAR HGB CONC 35.2 g/dl (32-36); MEAN PLATELET VOLUME 9.5 fL (7.4-10.4); MONO % 9.8 %; MONO ABS # 0.63 K/uL (0.11-0.59); NEUT % 66.2 %; NEUT ABS # 4.28 K/uL (1.4-6.5); PLATELET COUNT 201 K/uL (130-400); RED CELL DISTRIBUTION WIDTH CV 13.6 % (11.5-14.5); RED CELL DISTRIBUTION WIDTH SD 47.7 fL (36.4-46.3); WHITE BLOOD COUNT 6.45 K/uL (4.8-10.8)
[2018-01-19 15:56] LABS: ALBUMIN 3.5 gm/dl (3.4-5.0); ALKALINE PHOSPHATASE 80 U/L (45-117); ALT/SGPT 33 U/L (12-78); AST/SGOT 20 U/L (15-37); BLOOD UREA NITROGEN 15 mg/dl (7-18); CALCIUM 8.5 mg/dl (8.5-10.1); CARBON DIOXIDE 25 mmol/L (21-32); CHOLESTEROL 136 mg/dl (0-200); CREATININE 0.92 mg/dl (0.60-1.40); GLUCOSE 111 mg/dl (70-99); LDL CHOLESTEROL CALCULATED 67 mg/dl; POTASSIUM 4.1 mmol/L (3.5-5.1); SODIUM 140 mmol/L (136-145); TOTAL PROTEIN 7.1 gm/dl (6.4-8.2)
[2018-01-20 06:30] LABS: HEMOGLOBIN A1C 6.1 % (4.5-5.6)
== END | disposition home or self-care (01) ==
LOC: C.LAB1850 12:49
PROVIDERS: ATTEND Nurse Practitioner Family
DX: G47.33 Obstructive sleep apnea (adult) (pediatric) (principal); I10 Essential (primary) hypertension; E78.5 Hyperlipidemia, unspecified; I48.0 Paroxysmal atrial fibrillation; E88.81 Metabolic syndrome and other insulin resistance; E55.9 Vitamin D deficiency, unspecified; E11.9 Type 2 diabetes mellitus without complications; F10.10 Alcohol abuse, uncomplicated

== ENCOUNTER → 2018-04-27 | Outpatient (CLI) | payer OTHER, BC ==
[~2018-04-27] VITALS: Ht 182.9 cm; Wt 140.7 kg
[2018-04-27 13:16] VITALS: BP 160/85; PULSE 74; Ht 182.9 cm; Wt 140.7 kg
== END | disposition home or self-care (01) ==
LOC: C.NEUR 12:51
PROVIDERS: ATTEND Physician Assistant
DX: G47.33 Obstructive sleep apnea (adult) (pediatric) (principal); E66.9 Obesity, unspecified

== ENCOUNTER 2024-08-21 12:38 | Observation (INO) ==
[2024-08-21 13:19] LABS: Basophils # (auto) 0.02 K/uL (0.00-0.20); Basophils % (auto) 0.3 %; Eosinophils # (auto) 0.14 K/uL (0.00-0.50); Eosinophils % (auto) 2.2 %; Hematocrit (blood only) 43.4 % (42.0-52.0); Hemoglobin 15.4 g/dl (14.0-18.0); Immature Granulocytes # (auto) 0.02 K/uL (0.01-0.20); Immature Granulocytes % (auto) 0.3 %; Lymphocytes # (auto) 1.37 K/uL (1.20-3.40); Lymphocytes % (auto) 21.7 %; Mean Corpuscular Hemoglobin 35.1 pg (25.0-34.0); Mean Corpuscular Hgb Conc 35.5 g/dL (32.0-36.0); Mean Corpuscular Volume 98.9 fL (80.0-100.0); Mean Platelet Volume 9.1 fL (9.4-12.4); Monocytes # (auto) 0.63 K/uL (0.11-0.59); Neutrophils # (auto) 4.12 K/uL (1.40-6.50); Neutrophils % (auto) 65.5 %; Platelet Count 264 K/uL (130-400); RDW Coefficient of Variation 12.9 % (11.5-14.5); RDW Standard Deviation 47.3 fL (36.4-46.3); Red Blood Count 4.39 M/uL (4.70-6.10)
--- NOTE | 2024-08-21 13:23 | XRay Report ---
XR chest 1V portable CLINICAL HISTORY: Chest pain, nonspecific TECHNIQUE: Single frontal radiograph of the chest was obtained. Comparison: Comparison is made to chest radiograph 07/09/2015 FINDINGS: Exam is limited by underpenetration. The cardiomediastinal silhouette is normal. The lungs are clear. No evidence of pleural effusion or pneumothorax. IMPRESSION: No acute chest disease. ACT 112: Negative or not required by law. Electronically signed by: Sandor Damon M.D. 08/21/2024 1:22 PM
[2024-08-21 13:35] LABS: Albumin Globulin Ratio 1.9 (0.9-2); Albumin Level 4.6 gm/dl (3.4-5.0); BUN Creatinine Ratio 16.8 (10-20); Bilirubin,Total 0.8 mg/dl (0.2-1.0); Calcium 9.4 mg/dl (8.6-10.3); Creatinine Clr Calc Pharmacy 92.9 ml/min; Globulin 2.4 gm/dl (2.5-4.0); Magnesium 1.7 mg/dl (1.7-2.4); Phosphorus 4.1 mg/dl (2.5-4.9); Potassium 4.6 mmol/L (3.5-5.1)
[2024-08-21 13:41] LABS: Troponin I High Sensitivity 6.4 pg/ml (0-20)
--- NOTE | 2024-08-21 13:43 | Emergency Department Note ---
Impression & Plan Atrial flutter with rapid ventricular response, Hypertension, Paroxysmal atrial flutter, Dyspnea on exertion, On apixaban therapy ED Provider Note NAME: TIGRE DSOUZA AGE: 69 SEX: M : 1955 ARRIVES VIA: Walk-In INFORMANT: Patient ED PROVIDER(S): Zachary Watson MD CHIEF COMPLAINT: Shortness of breath. PLAN: Disposition: Admit MEDICAL DECISION MAKING: The patient is a pleasant 69-year-old gentleman with a past medical history of paroxysmal atrial flutter on atenolol, flecainide and Eliquis, hypertension, hyperlipidemia who presents to the emergency department via walk-in for evaluation of episode of dizziness which occurred yesterday and then shortness of breath in the evening which has continued into today. Patient reports that he took his vitals at home and noticed his heart rate was in the 120s. He reports his blood pressure was not particularly elevated though the diastolic was in the upper 90s-low 100s. Patient denies any associated chest pain. He denies any recent illness including denies fevers, chills, cough, congestion, GI or symptoms. Patient reports he is scheduled to be assessed by cardiac EP on September 03 for possible ablation for his atrial flutter. Patient reports having had cardioversion in the past but his atrial flutter returned. He reports taking his medications without interruption. Patient notes that he may be mildly dehydrated as he has been doing a lot of work around the house. Patient reports drinking at least 2 alcoholic drinks a night but no more than this. Of note, the patient did arrive to emergency department during time of high volume, acuity and prolonged emergency department waiting times. Critical pathways initiated from triage. On evaluation the patient is no acute distress, afebrile with heart rate in the 110s-120s and atrial flutter and blood pressure 190/90s in triage and vital signs otherwise stable. Patient appears euvolemic to slightly dry. Lungs are clear. Exam is otherwise unremarkable. EKG demonstrates atrial flutter with RVR with heart rate 111 without overt acute ischemia. Chest x-ray negative for acute cardiopulmonary process. WBC, H/H and platelets within normal limits. Chemistry without metabolic acidosis. Magnesium 1.7. Otherwise lectrolytes LFTs without significant abnormality. High-sensitivity troponin 6.4, within normal limits. TSH within limits. Respiratory BioFire with negative. Patient was treated with gentle IV fluid hydration and blood pressure did improve to the 130/100s. Heart rate without any significant change and was administered 5 mg of IV Lopressor x 3. Overall did not have any significant change in his rate as he remains in the 110s. He was given his evening dose of flecainide. Case was discussed with the patient's it risk and assurance senior manager, Dr. Wright. Though not on-call, appreciate consultation/recommendations. Patient unlikely to achieve better rate control then his current rate in the 100s-110s given his atrial flutter. Patient has been recommended to have an ablation in the past which is in progress to be considered with his appointment at the end of the month. However in the short-term patient can be treated with cardioversion. Can be performed in the emergency department or admitted for cardioversion in the morning. Recommends maintaining the patient's current medications and avoiding any additional rate controlling medications to avoid bradycardia following electrocardioversion. Given the current emergency department volume, acuity and staffing as well as patient having been treated with multiple doses of Lopressor patient will be admitted for further management. Case was discussed with Dr. Contreras, [facility] [place], who will evaluate the patient for admission. Further management per admitting team. Triage Nursing notes reviewed and agree them. Prior/external medical records reviewed Vital Signs: reviewed Differential diagnosis: Reactive airway disease, pneumonia, pneumothorax, COPD, CHF, infections, cardiac ischemia, pulmonary embolism, musculoskeletal, gastrointestinal, as well as other pathologies. ER treatment provided: See below. Diagnostics interpreted by me: ECG: Atrial flutter with variable AV block, 111 bpm, no overt ST elevation or depression, QTc 437, QRS Cardiac Monitoring: An order for continuous cardiac monitoring was placed and demonstrated Atrial flutter with variable AV block, 111 bpm. Laboratory studies: See below Imaging studies: See below Consultation(s): Dr. Wright, [place] cardiology. Dr. Contreras [facility] hospital[facility]. HPI: The patient is a pleasant 69-year-old gentleman with a past medical history of paroxysmal atrial flutter on atenolol, flecainide and Eliquis, hypertension, hyperlipidemia who presents to the emergency department via walk-in for evaluation of episode of dizziness which occurred yesterday and then shortness of breath in the evening which has continued into today. Patient reports that he took his vitals at home and noticed his heart rate was in the 120s. He reports his blood pressure was not particularly elevated though the diastolic was in the upper 90s-low 100s. Patient denies any associated chest pain. He denies any recent illness including denies fevers, chills, cough, congestion, GI or symptoms. Patient reports he is scheduled to be assessed by cardiac EP on September 03 for possible ablation for his atrial flutter. Patient reports having had cardioversion in the past but his atrial flutter returned. He reports taking his medications without interruption. Patient notes that he may be mildly dehydrated as he has been doing a lot of work around the house. Patient reports drinking at least 2 alcoholic drinks a night but no more than this. ROS: See above HPI for pertinent positives & negatives. A total of 10 systems reviewed and were otherwise negative. VITALS:See Below PHYSICAL EXAMINATION: GENERAL: Awake, alert, well-appearing, in no distress, BMI 42.8. HENT: Normocephalic, atraumatic. Oropharynx with dry mucous membranes and otherwise unremarkable. EYES: Normal conjunctiva. Sclera non-icteric. NECK: Supple. No nuchal rigidity. FROM. No JVD. RESPIRATORY: Clear to auscultation. CARDIAC: Tachycardic rate, normal rhythm. Extremities warm and well perfused. Pulses equal. ABDOMEN: Soft, non-distended. No tenderness to palpation. No rebound or guarding. No masses. MUSCULOSKELETAL: Chest examination reveals no tenderness. The back is symmetrical on inspection without obvious abnormality. There is no CVA tenderness to palpation. No joint edema. LOWER EXTREMITIES: Calves are equal size bilaterally and non-tender. No edema. No discoloration. NEURO: Normal sensorium. No sensory or motor deficits noted. SKIN: No rash or jaundice noted. ED COURSE: Critical Care: I have personally spent greater than 35 minutes of critical care time in the direct management of this patient. This includes bedside care, interpretation of diagnostic studies, and testing, discussion with consultants, patient, and family members, and other required patient management activities. This 35 minutes is in excess of all separately billable procedures. Zachary Watson MD Past Med/Surg History Problem List (Updated 08/22/24 @ 02:41 by Zachary Watson MD) On apixaban therapy (Acute) Dyspnea on exertion (Acute) Paroxysmal atrial flutter (Acute) Hypertension (Acute) Atrial flutter with rapid ventricular response (Acute) Nocturnal hypoxemia Paroxysmal atrial flutter Encounter for monitoring flecainide therapy Throat pain Vitamin B12 deficiency History of colon polyps Erectile dysfunction (Acute) Obesity (Acute) Skin lesion of face (Acute) Vitamin D deficiency (Acute) Tinnitus of both ears Sensorineural hearing loss of both ears L>R high frequency asymmetry Type 2 diabetes mellitus (Chronic) NIDDM Hypertension (Acute) Dyslipidemia (Acute) Obstructive sleep apnea (Acute) Medical History Paroxysmal atrial fibrillation follows with Dr. Wright--on eliquis Alcohol abuse On anticoagulant therapy eliquis daily Eye pressure denies glaucoma Former smoker Surgical History History of wisdom tooth extraction History of bilateral cataract extraction History of tonsillectomy (1958) History of rhinoplasty S/P colonoscopic polypectomy Family History Father Diabetes Other No family history of adverse response to anesthesia Denies family history of Ovarian cancer Prostate cancer Myocardial infarction Breast cancer Colorectal cancer Social History Smoking Status: Former smoker Tobacco Type: Cigars Age Started Using Tobacco: 58; Age Quit Using Tobacco: 65; packs per day: 0.5; Second Hand Exposure: No; Do You Dip or Chew Tobacco: No; Hx Alcohol Use: Yes Alcohol type: beer Alcohol Intake Frequency: 2-3 x/Week Hx Substance Use: No Preferred Language: Romansh Communication Ability: Effective Visual Impairment: No Limitations Hearing Ability: Normal Wooden Frame Builder Required: No Beliefs That Will Affect Care: None marital status: / Current Living Situation: Spouse Current Living Situation Comment: Home with /girlfriend current occupational status: retired How many Children do You have: 2 Other Information That Helps Us Care for You: No Feels Safe at Home: Yes Childhood Exposure to Second-Hand Smoke: No Diet: regular caffeine: Yes during the past year weight has: remained stable Dental Care, Regularly: Yes Physical Activity Frequency: Does not Exercise Seatbelt Use: always Sunscreen Use: Yes Assistive Devices: None Allergies Allergies Allergy/AdvReac Type Severity Reaction Status Date / Time clarithromycin Allergy Mild HALLUCINATI Verified 07/23/24 09:22 ONS Home Meds Home Medications Medication Instructions Recorded Confirmed cholecalciferol (vitamin D3) 50 2,000 units PO QAM #30 tabs 07/03/19 07/23/24 mcg (2,000 unit) tablet krill oil 500 mg capsule 500 mg PO QAM 07/03/19 07/23/24 latanoprost (PF) 0.005 % eye drops 1 drp ophthalmic (eye) PM 10/28/21 07/23/24 Previous Rx's Medication Instructions Recorded CPAP Supplies #1 ea 06/14/19 flecainide 150 mg tablet 150 mg PO Q12H #180 tabs 10/24/23 metformin 1,000 mg tablet 1,000 mg PO BID #180 tabs 11/21/23 atorvastatin 40 mg tablet 40 mg PO QPM #90 tabs 05/10/24 atenolol 25 mg tablet See Rx Instructions PO DAILY #270 05/21/24 tabs sildenafil 100 mg tablet 50 - 100 mg (0.5 - 1 x 100 mg) PO 07/09/24 DAILY PRN sexual activity #30 tabs cyclobenzaprine 10 mg tablet 10 mg PO TID PRN muscle spasm #30 07/10/24 tabs apixaban 5 mg tablet (Eliquis) 5 mg PO BID Afib #180 tabs 08/06/24 lisinopril 10 mg tablet 10 mg PO DAILY #90 tabs 08/09/24 Results & Data (ED) Vital Signs Vital Signs - 24 hr 08/21/24 12:42 08/21/24 13:05 08/21/24 13:05 Temperature 36.8 C Temperature Source Skin Pulse Rate 111 H Pulse Rate [Apical] Pulse Rate from SpO2 Sensor Respiratory Rate 20 18 Respiratory Effort / Characteristics Non-Labored Spontaneous Respiratory Depth Blood Pressure 198/99 H Blood Pressure [Right Arm] 158/93 H Blood Pressure Mean 132 Blood Pressure Mean [Right Arm] 114 Blood Pressure Position [Right Arm] Lying Pulse Oximetry 95 96 96 Oxygen Delivery Method Room Air Room Air Sepsis Recent Fever Within 48 Hours No Sepsis New/Unexplained Change in Mental Status No Sepsis Action Taken by Nursing No Action Required 08/21/24 13:05 08/21/24 13:09 08/21/24 15:00 Temperature Temperature Source Pulse Rate 107 H 108 H Pulse Rate [Apical] 108 H Pulse Rate from SpO2 Sensor Respiratory Rate 18 16 Respiratory Effort / Characteristics Non-Labored Spontaneous Respiratory Depth Blood Pressure Blood Pressure [Right Arm] 101/82 Blood Pressure Mean Blood Pressure Mean [Right Arm] 88 Blood Pressure Position [Right Arm] Lying Pulse Oximetry 96 97 Oxygen Delivery Method Room Air Room Air Sepsis Recent Fever Within 48 Hours Sepsis New/Unexplained Change in Mental Status Sepsis Action Taken by Nursing 08/21/24 15:59 08/21/24 16:14 08/21/24 17:00 Temperature Temperature Source Pulse Rate 108 H 105 H Pulse Rate [Apical] 109 H Pulse Rate from SpO2 Sensor Respiratory Rate 18 Respiratory Effort / Characteristics Non-Labored Spontaneous Respiratory Depth Normal Blood Pressure 111/90 107/86 Blood Pressure [Right Arm] 129/101 H Blood Pressure Mean Blood Pressure Mean [Right Arm] 110 Blood Pressure Position [Right Arm] Lying Pulse Oximetry 96 Oxygen Delivery Method Room Air Sepsis Recent Fever Within 48 Hours Sepsis New/Unexplained Change in Mental Status Sepsis Action Taken by Nursing 08/21/24 17:25 08/21/24 17:35 08/21/24 17:40 Temperature Temperature Source Pulse Rate 116 H 112 H 113 H Pulse Rate [Apical] Pulse Rate from SpO2 Sensor Respiratory Rate Respiratory Effort / Characteristics Respiratory Depth Blood Pressure 138/95 144/91 H Blood Pressure [Right Arm] Blood Pressure Mean Blood Pressure Mean [Right Arm] Blood Pressure Position [Right Arm] Pulse Oximetry Oxygen Delivery Method Sepsis Recent Fever Within 48 Hours Sepsis New/Unexplained Change in Mental Status Sepsis Action Taken by Nursing 08/21/24 18:11 08/21/24 18:26 08/21/24 19:10 Temperature Temperature Source Pulse Rate 109 H 109 H 107 H Pulse Rate [Apical] Pulse Rate from SpO2 Sensor Respiratory Rate 22 Respiratory Effort / Characteristics Respiratory Depth Blood Pressure 131/97 129/101 H 130/104 H Blood Pressure [Right Arm] Blood Pressure Mean 114 Blood Pressure Mean [Right Arm] Blood Pressure Position [Right Arm] Pulse Oximetry 95 Oxygen Delivery Method Room Air Sepsis Recent Fever Within 48 Hours Sepsis New/Unexplained Change in Mental Status Sepsis Action Taken by Nursing 08/21/24 19:33 08/21/24 20:00 08/21/24 20:00 Temperature Temperature Source Pulse Rate 109 H 112 H 109 H Pulse Rate [Apical] Pulse Rate from SpO2 Sensor 112 H Respiratory Rate 23 22 20 Respiratory Effort / Characteristics Respiratory Depth Blood Pressure 129/91 144/99 H 144/99 H Blood Pressure [Right Arm] Blood Pressure Mean 103 111 111 Blood Pressure Mean [Right Arm] Blood Pressure Position [Right Arm] Pulse Oximetry 96 98 97 Oxygen Delivery Method Room Air Room Air Sepsis Recent Fever Within 48 Hours Sepsis New/Unexplained Change in Mental Status Sepsis Action Taken by Nursing 08/21/24 21:28 08/21/24 21:33 Temperature Temperature Source Pulse Rate 114 H 104 H Pulse Rate [Apical] Pulse Rate from SpO2 Sensor 107 H Respiratory Rate 24 Respiratory Effort / Characteristics Respiratory Depth Blood Pressure Blood Pressure [Right Arm] Blood Pressure Mean Blood Pressure Mean [Right Arm] Blood Pressure Position [Right Arm] Pulse Oximetry 96 Oxygen Delivery Method Room Air Sepsis Recent Fever Within 48 Hours Sepsis New/Unexplained Change in Mental Status Sepsis Action Taken by Nursing Laboratory Data Attestation: I reviewed the patient's lab results. 08/21/24 12:52 08/21/24 12:52 Lab Results 08/21/24 08/21/24 08/21/24 Range/Units 12:52 13:43 14:25 WBC 6.30 (4.8-10.8) K/ul RBC 4.39 L (4.70-6.10) M/uL Hgb 15.4 (14.0-18.0) g/dl Hct 43.4 (42.0-52.0) % MCV 98.9 (80.0-100.0) fL MCH 35.1 H (25.0-34.0) pg MCHC 35.5 (32.0-36.0) g/dL RDW Std Deviation 47.3 H (36.4-46.3) fL RDW Coeff of Cale 12.9 (11.5-14.5) % Plt Count 264 (130-400) K/uL MPV 9.1 L (9.4-12.4) fL Immature Gran % (Auto) 0.3 % Neut % (Auto) 65.5 % Lymph % (Auto) 21.7 % [place] % (Auto) 10.0 % Eos % (Auto) 2.2 % Baso % (Auto) 0.3 % Neut # (Auto) 4.12 (1.40-6.50) K/uL Lymph # (Auto) 1.37 (1.20-3.40) K/uL [place] # (Auto) 0.63 H (0.11-0.59) K/uL Eos # (Auto) 0.14 (0.00-0.50) K/uL Baso # (Auto) 0.02 (0.00-0.20) K/uL Immature Gran # (Auto) 0.02 (0.01-0.20) K/uL PT Cancelled 11.2 INR Cancelled 1.0 APTT Cancelled 29 PTT Ratio Cancelled 1.1 Sodium 140 (136-145) mmol/L Potassium 4.6 (3.5-5.1) mmol/L Chloride 106 (98-107) mmol/L Carbon Dioxide 26 (21-32) mmol/L Anion Gap 8 (3-11) BUN 18 (6-23) mg/dl Creatinine 1.07 (0.6-1.4) mg/dl Est Cr Clr Drug Dosing 92.9 ml/min eGFR 74.19 BUN/Creatinine Ratio 16.8 (10-20) Glucose 151 H (70-99(Fasting)) mg/dl Calcium 9.4 (8.6-10.3) mg/dl Phosphorus 4.1 (2.5-4.9) mg/dl Magnesium 1.7 (1.7-2.4) mg/dl Total Bilirubin 0.8 (0.2-1.0) mg/dl AST 21 (13-39) U/L ALT 26 (7-52) U/L Alkaline Phosphatase 54 (34-104) U/L Troponin I High Sens 6.4 (0-20) pg/ml Total Protein 7.0 (6.0-8.3) gm/dl Albumin 4.6 (3.4-5.0) gm/dl Globulin 2.4 L (2.5-4.0) gm/dl Albumin/Globulin Ratio 1.9 (0.9-2) TSH 1.408 (0.300-4.500) uIu/ml Adenovirus (PCR) Not Detected (NotDetected) B. pertussis DNA (PCR) Not Detected (NotDetected) B.parapertussis DNA PCR Not Detected (NotDetected) C. pneumoniae DNA (PCR) Not Detected (NotDetected) Coronavirus OC43 (PCR) Not Detected (NotDetected) Coronavirus HKU1 (PCR) Not Detected (NotDetected) Coronavirus 229E (PCR) Not Detected (NotDetected) SARS-CoV-2 (PCR) Not Detected (NotDetected) Coronavirus NL63 (PCR) Not Detected (NotDetected) Human Metapneumovir PCR Not Detected (NotDetected) Influenza Type A (PCR) Not Detected (NotDetected) Influenza Type B (PCR) Not Detected (NotDetected) M. pneumoniae (PCR) Not Detected (NotDetected) Parainfluenza 1 (PCR) Not Detected (NotDetected) Parainfluenza 2 (PCR) Not Detected (NotDetected) Parainfluenza 3 (PCR) Not Detected (NotDetected) Parainfluenza 4 (PCR) Not Detected (NotDetected) RSV (PCR) Not Detected (NotDetected) Entero/Rhino (PCR) Not Detected (NotDetected) Administered Medications Magnesium Sulfate/Dextrose (Magnesium Sulfate / D5w) 1 gm in 100 mls @ 50 mls/hr IV Q2H MARIANELA Stop: 08/22/24 03:30 Last Admin: 08/22/24 01:08 Dose: 50 mls/hr Documented By: PITA Discontinued Medications Flecainide Acetate (Flecainide Acetate 100 Mg Tablet) 150 mg PO NOW STA Stop: 08/21/24 19:44 Last Admin: 08/21/24 20:07 Dose: 150 mg Documented By: KARYN Sodium Chloride (Nss) 500 mls @ 999 mls/hr IV .Q31M ONE Stop: 08/21/24 14:16 Last Admin: 08/21/24 13:49 Dose: Not Given Documented By: LULA Sodium Chloride (Nss) 500 mls @ 999 mls/hr IV .Q31M ONE Stop: 08/21/24 14:16 Last Infusion: 08/21/24 14:46 Dose: Infused Documented By: Admin: 08/21/24 13:50 Dose: 999 mls/hr Documented By: LULA Sodium Chloride (Nss) 500 mls @ 999 mls/hr IV .Q31M ONE Stop: 08/21/24 18:33 Last Infusion: 08/21/24 20:11 Dose: Infused Documented By: Admin: 08/21/24 18:11 Dose: 999 mls/hr Documented By: LULA Metoprolol Tartrate (Metoprolol Tartrate 1 Mg/Ml Vial) 5 mg IV NOW STA Stop: 08/21/24 15:55 Last Admin: 08/21/24 15:59 Dose: 5 mg Documented By: LULA Metoprolol Tartrate (Metoprolol Tartrate 1 Mg/Ml Vial) 5 mg IV NOW STA Stop: 08/21/24 17:03 Last Admin: 08/21/24 17:25 Dose: 5 mg Documented By: LULA Metoprolol Tartrate (Metoprolol Tartrate 1 Mg/Ml Vial) 5 mg IV NOW STA Stop: 08/21/24 18:04 Last Admin: 08/21/24 18:11 Dose: 5 mg Documented By: LULA Imaging Data Radiologist's Impression: Chest X-Ray 08/21/24 12:45 XR chest 1V portable CLINICAL HISTORY: Chest pain, nonspecific TECHNIQUE: Single frontal radiograph of the chest was obtained. Comparison: Comparison is made to chest radiograph 07/09/2015 FINDINGS: Exam is limited by underpenetration. The cardiomediastinal silhouette is normal. The lungs are clear. No evidence of pleural effusion or pneumothorax. IMPRESSION: No acute chest disease. ACT 112: Negative or not required by law. Electronically signed by: Sandor Damon M.D. 08/21/2024 1:22 PM Discharge Plan Visit Data Chief Complaint: Cardiac Assessment Stated Complaint: HEART FLUTTERING, SOB ED Provider: Zachary Watson Discharge Problem: Atrial flutter with rapid ventricular response, Hypertension, Paroxysmal atrial flutter, Dyspnea on exertion, On apixaban therapy Patient Disposition: Admitted As Inpatient Discharge Instructions Interventions: ED Discharge Assessment Last Done: 08/21/24 23:01 Discharge Problem: Hypertension Qualifiers: Hypertension type: unspecified Qualified Code(s): I10 - Essential (primary) hypertension
[2024-08-21] MEDS: SODIUM CHLORIDE 0.9% 500 ML IV ONE ×3 (13:49→18:11)
[2024-08-21 13:50] LABS: Thyroid Stimulating Hormone 1.408 uIu/ml (0.300-4.500)
[2024-08-21 14:47] LABS: Adenovirus PCR Not Detected (NotDetected); Bordetella parapertussis PCR Not Detected (NotDetected); Bordetella pertussis PCR Not Detected (NotDetected); Chlamydia pneumoniae PCR Not Detected (NotDetected); Coronavirus 229E PCR Not Detected (NotDetected); Coronavirus CoV-2 (COVID19)PCR Not Detected (NotDetected); Coronavirus HKU1 PCR Not Detected (NotDetected); Coronavirus NL63 PCR Not Detected (NotDetected); Coronavirus OC43PCR Not Detected (NotDetected); Human Metapneumovirus PCR Not Detected (NotDetected); Influenza A PCR Not Detected (NotDetected); Influenza B PCR Not Detected (NotDetected); Mycoplasma pneumoniae PCR Not Detected (NotDetected); Parainfluenza Virus 1 PCR Not Detected (NotDetected); Parainfluenza Virus 2 PCR Not Detected (NotDetected); Parainfluenza Virus 3 PCR Not Detected (NotDetected); Parainfluenza Virus 4 PCR Not Detected (NotDetected); Respiratory Syncytial VirusPCR Not Detected (NotDetected); Rhinovirus/Enterovirus PCR Not Detected (NotDetected)
[2024-08-21 15:36] LABS: Partial Thromboplastin Ratio 1.1; Partial Thromboplastin Time 29 Seconds (21-31); Prothrombin Time 11.2 Seconds (9.0-12.0)
[2024-08-21] MEDS: METOPROLOL TARTRATE 1 MG/ML VIAL IV STA ×3 (15:59→18:11)
[2024-08-21] MEDS: FLECAINIDE ACETATE 100 MG TABLET PO STA (20:07)
--- NOTE | 2024-08-21 21:48 | History & Physical Report ---
Date of Service August 21, 2024 Assessment & Plan (1) Paroxysmal atrial flutter: Plan: 69yo male with history of paroxysmal atrial flutter presenting with atrial flutter ongoing for the last day. Patient is fairly symptomatic with this - reports some dizziness earlier in the day causing him to pull his car over. Also with some SOB and irritability, diaphoresis earlier today. No evidence of failure. No LOC or falls. Patient is compliant with his Apixaban 5mg po BID and denies missing any doses. Patient follows with Cardiology - last seen 05/02/24 and is scheduled for a caval tricuspid isthmus ablation with Dr. Gastelum on 09/03/24 -Observation to medical with telemetry -Magnesium 2gm ordered -Continue Flecainide 150mg po BID -Continue Atenolol at home dose - 50mg po qAM and 25mg po qPM -Will keep NPO -Cardiology consultation appreciated - possible cardioversion in AM (2) Hypertension: Plan: Chronic, stable. Blood pressure acceptable at present -Continue Lisinopril 10mg po daily -Monitor (3) Dyslipidemia: Plan: Chronic. Stable -Continue Lipitor 40mg po qPM (4) Obstructive sleep apnea: Plan: Chronic. Stable. Patient reports compliance with his CPAP -Continue CPAP qHS [id number] (5) Type 2 diabetes mellitus: Plan: Patient with Type 2 DM - well controlled on Metformin 1000mg po BID with last Hgb A1C=5.7 on 06/30/24 -Hold Metformin -Fingersticks -No insulin ordered as patient well controlled, NPO for now Plan EtOH daily intake - patient reports drinking 4 drinks per night. No history of withdrawal. -AWSS at risk protocol -Monitor closely F/E/N - Saline lock. Mg repletion x 2gm, NPO for now for possible cardioversion in AM Ppx - Continue home apixaban Code - Full Dispo - Observation to medical with telemetry History of Present Illness Chief Complaint: atrial fibrillation Primary Care Provider: Rick Nascimento III, MAHSA Seferino Whitt is a 69yo male with history of HTN, HLP, DM, Paroxysmal atrial fibrillation on Apixaban anticoagulation and MÓNICA on CPAP presenting from home with atrial fibrillation. Patient reports he was driving yesterday and became suddenly lightheaded and "disassociated" for a few moments. He pulled the car over and the sensation passed. Last evening he got up to let the dogs out and he reports becoming very short of breath after walking back up the stairs. He felt that his heart was bounding. He checked his pulse ox which was acceptable but his HR was in the 140's and irregular. His diastolic blood pressure was also elevated at around 95. He was able to fall asleep but when he woke this morning he still did not feel well still with elevated HR as well as some lethargy, shortness of breath and irritability. He also reports significant diaphoresis. He denies chest pain or current dizziness. No LOC. No additional complaints at this time. Patient reports that he is rarely in atrial fibrillation. He follows with Cardiology and is scheduled for an ablation with Dr. Gastelum on 09/03/24 He has been compliant with his Apixaban and has not missed any doses. He reports taking his PM dose today. In the ER patient afebrile, in atrial fibrillation with rates ranging 101- 112. Blood pressure has been acceptable ER Course: NSS x 1L Metoprolol 5mg IV x 3 doses Flecainide 150mg po Allergies Allergy/AdvReac Type Severity Reaction Status Date / Time clarithromycin Allergy Mild HALLUCINATI Verified 07/23/24 09:22 ONS Home Medications Medication Instructions Recorded Confirmed Type CPAP Supplies #1 ea 06/14/19 07/23/24 Rx cholecalciferol (vitamin D3) 50 2,000 units PO QAM #30 tabs 07/03/19 07/23/24 History mcg (2,000 unit) tablet krill oil 500 mg capsule 500 mg PO QAM 07/03/19 07/23/24 History latanoprost (PF) 0.005 % eye drops 1 drp ophthalmic (eye) PM 10/28/21 07/23/24 History flecainide 150 mg tablet 150 mg PO Q12H #180 tabs 10/24/23 07/23/24 Rx metformin 1,000 mg tablet 1,000 mg PO BID #180 tabs 11/21/23 07/23/24 Rx atorvastatin 40 mg tablet 40 mg PO QPM #90 tabs 05/10/24 07/23/24 Rx atenolol 25 mg tablet See Rx Instructions PO DAILY #270 05/21/24 07/23/24 Rx tabs sildenafil 100 mg tablet 50 - 100 mg (0.5 - 1 x 100 mg) PO 07/09/24 07/23/24 Rx DAILY PRN sexual activity #30 tabs cyclobenzaprine 10 mg tablet 10 mg PO TID PRN muscle spasm #30 07/10/24 07/23/24 Rx tabs apixaban 5 mg tablet (Eliquis) 5 mg PO BID Afib #180 tabs 08/06/24 Rx lisinopril 10 mg tablet 10 mg PO DAILY #90 tabs 08/09/24 Rx Past Med/Surg History Problem List Nocturnal hypoxemia Paroxysmal atrial flutter Encounter for monitoring flecainide therapy Throat pain Vitamin B12 deficiency History of colon polyps Erectile dysfunction (Acute) Obesity (Acute) Skin lesion of face (Acute) Vitamin D deficiency (Acute) Tinnitus of both ears Sensorineural hearing loss of both ears L>R high frequency asymmetry Type 2 diabetes mellitus (Chronic) NIDDM Hypertension (Acute) Dyslipidemia (Acute) Obstructive sleep apnea (Acute) Medical History Paroxysmal atrial fibrillation follows with Dr. Wright--on eliquis Alcohol abuse On anticoagulant therapy eliquis daily Eye pressure denies glaucoma Former smoker Surgical History History of wisdom tooth extraction History of bilateral cataract extraction History of tonsillectomy (1958) History of rhinoplasty S/P colonoscopic polypectomy Family History Father Diabetes Other No family history of adverse response to anesthesia Denies family history of Ovarian cancer Prostate cancer Myocardial infarction Breast cancer Colorectal cancer Social History Smoking Status: Former smoker Tobacco Type: Cigars Age Started Using Tobacco: 58; Age Quit Using Tobacco: 65; packs per day: 0.5; Second Hand Exposure: No; Do You Dip or Chew Tobacco: No; Hx Alcohol Use: Yes Alcohol type: beer Alcohol Intake Frequency: 2-3 x/Week Hx Substance Use: No Preferred Language: Citizen [place] Communication Ability: Effective Visual Impairment: No Limitations Hearing Ability: Normal Government Operations Consultant Required: No Beliefs That Will Affect Care: None marital status: / Current Living Situation: Spouse Current Living Situation Comment: Home with /girlfriend current occupational status: retired How many Children do You have: 2 Other Information That Helps Us Care for You: No Feels Safe at Home: Yes Childhood Exposure to Second-Hand Smoke: No Diet: regular caffeine: Yes during the past year weight has: remained stable Dental Care, Regularly: Yes Physical Activity Frequency: Does not Exercise Seatbelt Use: always Sunscreen Use: Yes Assistive Devices: None Review of Systems Review of Systems: All systems reviewed & are unremarkable except as noted in HPI & below Physical Exam Physical Exam: General: patient resting comfortably, NAD, non-toxic in appearance, AA&O x 4 Skin: warm, dry, intact, no rashes or lesions HEENT: NC/AT, PERRL, EOMI, anicteric sclera, conjunctiva without injection, external ear normal to inspection and nontender, nares patent, moist mucus membranes, dentition intact, no oropharyngeal lesions, neck supple, trachea midline, no LAD, no thyromegaly, no JVD Heart: +S1/S2, irregularly irregular, no m/r/g Lungs: equal air entry bilaterally, no rales/rhonchi/wheezes Abd: +BS, soft, NT/ND, no masses/organomegaly/ascites Ext: warm, 2+ pulses in UE/LE bilaterally, no clubbing/cyanosis or edema Neuro: nonfocal, patient AA&O x 4, speech intact, no facial droop, moving all extremities on command with equal strength 5/5 Results & Data Results & Data Vital Signs (Past 12 Hours) Vital Signs Temp Pulse Pulse Resp BP BP Pulse Ox 08/21/24 21:28 114 H 08/21/24 20:00 112 H 22 144/99 H 98 08/21/24 19:33 109 H 23 129/91 96 08/21/24 19:10 107 H 22 130/104 H 95 08/21/24 18:26 109 H 129/101 H 08/21/24 18:11 109 H 131/97 08/21/24 17:40 113 H 144/91 H 08/21/24 17:35 112 H 08/21/24 17:25 116 H 138/95 08/21/24 17:00 109 H 18 129/101 H 96 08/21/24 16:14 105 H 107/86 08/21/24 15:59 108 H 111/90 08/21/24 15:00 108 H 16 101/82 97 08/21/24 13:09 108 H 08/21/24 13:05 107 H 18 96 08/21/24 13:05 18 158/93 H 96 08/21/24 13:05 96 08/21/24 12:42 36.8 C 111 H 20 198/99 H 95 O2 Del Method 08/21/24 21:28 08/21/24 20:00 Room Air 08/21/24 19:33 08/21/24 19:10 Room Air 08/21/24 18:26 08/21/24 18:11 08/21/24 17:40 08/21/24 17:35 08/21/24 17:25 08/21/24 17:00 Room Air 08/21/24 16:14 08/21/24 15:59 08/21/24 15:00 Room Air 08/21/24 13:09 08/21/24 13:05 Room Air 08/21/24 13:05 Room Air 08/21/24 13:05 Room Air 08/21/24 12:42 Laboratory Results Laboratory Results WBC 6.30 K/ul (4.8-10.8) 08/21/24 12:52 RBC 4.39 M/uL (4.70-6.10) L 08/21/24 12:52 Hgb 15.4 g/dl (14.0-18.0) 08/21/24 12:52 Hct 43.4 % (42.0-52.0) 08/21/24 12:52 MCV 98.9 fL (80.0-100.0) 08/21/24 12:52 MCH 35.1 pg (25.0-34.0) H 08/21/24 12:52 MCHC 35.5 g/dL (32.0-36.0) 08/21/24 12:52 RDW Std Deviation 47.3 fL (36.4-46.3) H 08/21/24 12:52 RDW Coeff of Cale 12.9 % (11.5-14.5) 08/21/24 12:52 Plt Count 264 K/uL (130-400) 08/21/24 12:52 MPV 9.1 fL (9.4-12.4) L 08/21/24 12:52 Immature Gran % (Auto) 0.3 % 08/21/24 12:52 Neut % (Auto) 65.5 % 08/21/24 12:52 Lymph % (Auto) 21.7 % 08/21/24 12:52 [place] % (Auto) 10.0 % 08/21/24 12:52 Eos % (Auto) 2.2 % 08/21/24 12:52 Baso % (Auto) 0.3 % 08/21/24 12:52 Neut # (Auto) 4.12 K/uL (1.40-6.50) 08/21/24 12:52 Lymph # (Auto) 1.37 K/uL (1.20-3.40) 08/21/24 12:52 [place] # (Auto) 0.63 K/uL (0.11-0.59) H 08/21/24 12:52 Eos # (Auto) 0.14 K/uL (0.00-0.50) 08/21/24 12:52 Baso # (Auto) 0.02 K/uL (0.00-0.20) 08/21/24 12:52 Immature Gran # (Auto) 0.02 K/uL (0.01-0.20) 08/21/24 12:52 PT 11.2 Seconds (9.0-12.0) 08/21/24 14:25 INR 1.0 (0.9-1.1) 08/21/24 14:25 APTT 29 Seconds (21-31) 08/21/24 14:25 PTT Ratio 1.1 08/21/24 14:25 Sodium 140 mmol/L (136-145) 08/21/24 12:52 Potassium 4.6 mmol/L (3.5-5.1) 08/21/24 12:52 Chloride 106 mmol/L (98-107) 08/21/24 12:52 Carbon Dioxide 26 mmol/L (21-32) 08/21/24 12:52 Anion Gap 8 (3-11) 08/21/24 12:52 BUN 18 mg/dl (6-23) 08/21/24 12:52 Creatinine 1.07 mg/dl (0.6-1.4) 08/21/24 12:52 Est Cr Clr Drug Dosing 92.9 ml/min 08/21/24 12:52 eGFR 74.19 08/21/24 12:52 BUN/Creatinine Ratio 16.8 (10-20) 08/21/24 12:52 Glucose 151 mg/dl (70-99(Fasting)) H 08/21/24 12:52 Calcium 9.4 mg/dl (8.6-10.3) 08/21/24 12:52 Phosphorus 4.1 mg/dl (2.5-4.9) 08/21/24 12:52 Magnesium 1.7 mg/dl (1.7-2.4) 08/21/24 12:52 Total Bilirubin 0.8 mg/dl (0.2-1.0) 08/21/24 12:52 AST 21 U/L (13-39) 08/21/24 12:52 ALT 26 U/L (7-52) 08/21/24 12:52 Alkaline Phosphatase 54 U/L (34-104) 08/21/24 12:52 Troponin I High Sens 6.4 pg/ml (0-20) 08/21/24 12:52 Total Protein 7.0 gm/dl (6.0-8.3) 08/21/24 12:52 Albumin 4.6 gm/dl (3.4-5.0) 08/21/24 12:52 Globulin 2.4 gm/dl (2.5-4.0) L 08/21/24 12:52 Albumin/Globulin Ratio 1.9 (0.9-2) 08/21/24 12:52 TSH 1.408 uIu/ml (0.300-4.500) 08/21/24 12:52 Adenovirus (PCR) Not Detected (NotDetected) 08/21/24 13:43 B. pertussis DNA (PCR) Not Detected (NotDetected) 08/21/24 13:43 B.parapertussis DNA PCR Not Detected (NotDetected) 08/21/24 13:43 C. pneumoniae DNA (PCR) Not Detected (NotDetected) 08/21/24 13:43 Coronavirus OC43 (PCR) Not Detected (NotDetected) 08/21/24 13:43 Coronavirus HKU1 (PCR) Not Detected (NotDetected) 08/21/24 13:43 Coronavirus 229E (PCR) Not Detected (NotDetected) 08/21/24 13:43 SARS-CoV-2 (PCR) Not Detected (NotDetected) 08/21/24 13:43 Coronavirus NL63 (PCR) Not Detected (NotDetected) 08/21/24 13:43 Human Metapneumovir PCR Not Detected (NotDetected) 08/21/24 13:43 Influenza Type A (PCR) Not Detected (NotDetected) 08/21/24 13:43 Influenza Type B (PCR) Not Detected (NotDetected) 08/21/24 13:43 M. pneumoniae (PCR) Not Detected (NotDetected) 08/21/24 13:43 Parainfluenza 1 (PCR) Not Detected (NotDetected) 08/21/24 13:43 Parainfluenza 2 (PCR) Not Detected (NotDetected) 08/21/24 13:43 Parainfluenza 3 (PCR) Not Detected (NotDetected) 08/21/24 13:43 Parainfluenza 4 (PCR) Not Detected (NotDetected) 08/21/24 13:43 RSV (PCR) Not Detected (NotDetected) 08/21/24 13:43 Entero/Rhino (PCR) Not Detected (NotDetected) 08/21/24 13:43 Impressions Chest X-Ray 08/21/24 12:45 XR chest 1V portable CLINICAL HISTORY: Chest pain, nonspecific TECHNIQUE: Single frontal radiograph of the chest was obtained. Comparison: Comparison is made to chest radiograph 07/09/2015 FINDINGS: Exam is limited by underpenetration. The cardiomediastinal silhouette is normal. The lungs are clear. No evidence of pleural effusion or pneumothorax. IMPRESSION: No acute chest disease. ACT 112: Negative or not required by law. Electronically signed by: Sandor Damon M.D. 08/21/2024 1:22 PM ECG Additional Comments: EKG per my evaluation reveals atrial flutter with HR of 111, normal axis, no acute ischemic changes, some non-specific ST changes present in inferior leads Code Status & VTE Plan VTE Prophylaxis Plan VTE Prophylaxis will be ordered: Yes PG Care Time/CCT Total # of Minutes Spent Total Time Spent with Patient: Total time spent is greater than 50% in coordination of care (as documented) at patient's floor/unit and/or counseling patient: Coding Level of Care Code 67911 INT INP/OBS CARE 2MIN Diagnoses Paroxysmal atrial flutter I48.92 Essential hypertension I10 Hypertension type: essential hypertension Dyslipidemia E78.5 Obstructive sleep apnea G47.33 Type 2 diabetes mellitus without complication, without long-term current use of insulin E11.9 Diabetes mellitus local intermodal truck driver insulin use: without local intermodal truck driver use Diabetes mellitus complication status: without complication (2) Hypertension Hypertension type: essential hypertension Qualified Code(s): I10 - Essential (primary) hypertension (5) Type 2 diabetes mellitus Diabetes mellitus local intermodal truck driver insulin use: without correction use Diabetes mellitus complication status: without complication Qualified Code(s): E11.9 - Type 2 diabetes mellitus without complications
[2024-08-21] MEDS ORDERED: ACETAMINOPHEN 325 MG TAB PO PRN (23:31)
[2024-08-21] MEDS ORDERED: ONDANSETRON INJ 2 MG/ML 2 ML VIAL IV PRN (23:31)
[2024-08-22] MEDS ORDERED: CYCLOBENZAPRINE HCL 10 MG TAB PO PRN (00:19)
[2024-08-22] MEDS: MAGNESIUM SULFATE / D5W 1 GM/100 ML BAG IV SCH (01:08)
[2024-08-22] MEDS ORDERED: LORazepam 2 MG/1 ML VIAL IV PRN (01:17)
[2024-08-22] MEDS ORDERED: GLUCAGON FOR INJ 1 MG VIAL SQ PRN (01:17)
[2024-08-22] MEDS ORDERED: GLUCOSE 40% GEL 15 GM TUBE PO PRN (01:17)
[2024-08-22] MEDS ORDERED: CARBOHYDRATES FOR HYPOGLYCEMIA PO PRN (01:17)
[2024-08-22] MEDS ORDERED: DEXTROSE 50% 50 ML SYRINGE IV PRN (01:17)
[2024-08-22] MEDS ORDERED: GLUCOSE 10 TAB/TUBE PO PRN (01:17)
[2024-08-22] MEDS: APIXABAN 5 MG TABLET PO SCH (07:45)
[2024-08-22] MEDS: FLECAINIDE ACETATE 100 MG TABLET PO SCH (07:46)
[2024-08-22] MEDS: ATENOLOL 25 MG TABLET PO SCH (07:46)
[2024-08-22] MEDS: lisinopril 10 MG TAB PO SCH (07:47)
[2024-08-22 08:05] VITALS: TEMP 97.9
--- NOTE | 2024-08-22 09:21 | Cardiology Consultation ---
Date of Consultation August 22, 2024 Assessment & Plan (1) Paroxysmal atrial flutter: (2) On apixaban therapy: (3) Hypertension: Plan ASSESSMENT/PLAN: 1. Atrial flutter: Paroxysmal. Symptomatic. Recommend cardioversion. Risk and benefits of the procedure were discussed with him in detail. He was agreeable to proceed. Once again recommend follow-up with electrophysiology to consider ablation. He has an appointment scheduled later this month. Continue anticoagulation for stroke risk reduction. Monitor blood counts. Reduce alcohol consumption. Continue flecainide for now. Continue beta-miller. 2. Hypertension: Blood pressure normotensive to mildly hypertensive. Can continue home medications. 3. Disposition: Recommend cardioversion today. Continue NPO. Close follow-up with electrophysiology to once again consider ablation. Plan of care communic ated with Dr. Eduardo of the primary hospitalist service. Highly complex medical issues. Thank you for allowing me to participate in the care of your patient. Please call for any other questions or concerns. Sincerely, Norberto Wright M.D. History of Present Illness Reason for Consultation: atrial flutter Requesting Physician: Dr. Contreras Attending Physician: Adriel Eduardo MD History of Present Illness Mr. Costa is a very pleasant 69-year-old gentleman with a history significant for paroxysmal flutter, hypertension, dyslipidemia, sleep apnea on CPAP. He has had the following studies/procedures: 1. Echo 07/19/2016: Normal LV size and systolic function. EF 60-65%. Normal wall motion. Moderate LVH. Type 1 diastolic dysfunction. Mild left atrial dilation. No significant valvular abnormalities. Sinus rhythm. 2. Stress echo 07/29/2021: No ischemic changes 78% MPHR. Hypertensive blood pressure response. No arrhythmia. 6 minutes Lele protocol. Resting EF 65- 70%. Normal wall motion. Mild LVH. No significant valvular abnormalities. 3. DC cardioversion 06/15/2023: Performed for symptomatic atrial flutter. Successfully converted to sinus rhythm with 100 J. 4. Echo 07/13/23 [facility]: Mildly dilated LV. EF 60 to 65%. Normal wall motion. Mild LVH. No significant valvular abnormalities. RVSP 17. He was admitted on 08/21/2024 with symptomatic atrial flutter. He estimates that he had been in atrial flutter for approximately 2 days. He was more short of breath with activity while in atrial flutter and also noted palpitations. His heart rate was in the 120s when he checked his blood pressure at home. He also experienced some diaphoresis. There was a brief episode of disorientation while sitting, but this was very brief. He denies chest pain, syncope, edema, melena, hematochezia, or hematuria. He has been using CPAP nightly. In the ER, he received multiple doses of intravenous metoprolol without significant improvement of heart rate. He also received IV fluids. Review of systems: As above. Family history: No known premature CAD. He has 1 brother and a father who with alcohol-related issues. Another brother is also an alcoholic. Social history: Quit smoking. He has consumed on average a six-pack per day for years but now consumes 2 alcoholic beverages daily. Denies drugs. He is a . His on 07/06/2018 with ALS. He has a son and a daughter, as well as grand children. His son is in internal medicine residency in [facility] (Started March of 2022). 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 His significant other is Fabian. He was unaccompanied. Allergies Allergy/AdvReac Type Severity Reaction Status Date / Time clarithromycin Allergy Mild HALLUCINATI Verified 07/23/24 09:22 ONS Home Medications Medication Instructions Recorded Confirmed Type CPAP Supplies #1 ea 06/14/19 07/23/24 Rx cholecalciferol (vitamin D3) 50 2,000 units PO QAM #30 tabs 07/03/19 07/23/24 History mcg (2,000 unit) tablet krill oil 500 mg capsule 500 mg PO QAM 07/03/19 07/23/24 History latanoprost (PF) 0.005 % eye drops 1 drp ophthalmic (eye) PM 10/28/21 07/23/24 History flecainide 150 mg tablet 150 mg PO Q12H #180 tabs 10/24/23 07/23/24 Rx metformin 1,000 mg tablet 1,000 mg PO BID #180 tabs 11/21/23 07/23/24 Rx atorvastatin 40 mg tablet 40 mg PO QPM #90 tabs 05/10/24 07/23/24 Rx atenolol 25 mg tablet See Rx Instructions PO DAILY #270 09/16/24 11/18/24 Rx tabs sildenafil 100 mg tablet 50 - 100 mg (0.5 - 1 x 100 mg) PO 07/09/24 07/23/24 Rx DAILY PRN sexual activity #30 tabs cyclobenzaprine 10 mg tablet 10 mg PO TID PRN muscle spasm #30 07/10/24 07/23/24 Rx tabs apixaban 5 mg tablet (Eliquis) 5 mg PO BID Afib #180 tabs 08/06/24 Rx lisinopril 10 mg tablet 10 mg PO DAILY #90 tabs 08/09/24 Rx Problem List On apixaban therapy (Acute) Paroxysmal atrial flutter (Acute) Atrial flutter with rapid ventricular response (Acute) Paroxysmal atrial flutter Encounter for monitoring flecainide therapy Throat pain Vitamin B12 deficiency History of colon polyps Erectile dysfunction (Acute) Skin lesion of face (Acute) Vitamin D deficiency (Acute) Tinnitus of both ears Sensorineural hearing loss of both ears L>R high frequency asymmetry Type 2 diabetes mellitus (Chronic) NIDDM Hypertension (Acute) Dyslipidemia (Acute) Patient History Medical History Dyspnea on exertion Hypertension Nocturnal hypoxemia Obstructive sleep apnea Obesity Paroxysmal atrial fibrillation follows with Dr. Wright--on eliquis Alcohol abuse On anticoagulant therapy eliquis daily Eye pressure denies glaucoma Former smoker Surgical History History of wisdom tooth extraction History of bilateral cataract extraction History of tonsillectomy (1958) History of rhinoplasty S/P colonoscopic polypectomy Family History Father Diabetes Other No family history of adverse response to anesthesia Denies family history of Ovarian cancer Prostate cancer Myocardial infarction Breast cancer Colorectal cancer Social History Smoking Status: Former smoker Tobacco Type: Cigars Age Started Using Tobacco: 58; Age Quit Using Tobacco: 65; packs per day: 0.5; Second Hand Exposure: No; Do You Dip or Chew Tobacco: No; Hx Alcohol Use: Yes Alcohol type: beer Alcohol Intake Frequency: 2-3 x/Week Hx Substance Use: No Preferred Language: Indonesian Communication Ability: Effective Visual Impairment: No Limitations Hearing Ability: Normal Cigar Maker Required: No Beliefs That Will Affect Care: None marital status: / Current Living Situation: Spouse Current Living Situation Comment: Home with /girlfriend current occupational status: retired How many Children do You have: 2 Feels Safe at Home: Yes Childhood Exposure to Second-Hand Smoke: No Diet: regular caffeine: Yes during the past year weight has: remained stable Dental Care, Regularly: Yes Physical Activity Frequency: Does not Exercise Seatbelt Use: always Sunscreen Use: Yes Assistive Devices: None Physical Exam Physical Exam: Gen.: No acute distress. Alert and oriented. HEENT: Anicteric sclera. Neck: Thick neck but no appreciable JVD. Cardiac: Irregular. Normal S1-S2. No audible murmur. No rubs or gallops. Pulmonary: Clear to auscultation bilaterally without wheezes, rales, or rhonchi. Abdomen: Obese. Soft, nontender, nondistended, with normoactive bowel sounds. No bruits noted. Extremities: 2+ radial pulses bilaterally. 2+ posterior tibialis pulses bilaterally. No pitting edema. No cyanosis. Psychiatric: Affect appears appropriate. Results & Data Vital Signs (Past 12 Hours) Vital Signs Temp Pulse Pulse Pulse Resp BP BP 08/22/24 08:04 36.6 C 109 H 18 151/93 H 08/22/24 04:17 36.7 C 110 H 16 138/91 08/21/24 23:43 08/21/24 23:43 36.6 C 107 H 16 08/21/24 23:01 108 H 20 08/21/24 22:30 105 H 22 136/90 08/21/24 22:18 101 H 25 H 08/21/24 22:17 103 H 20 08/21/24 21:33 104 H 24 08/21/24 21:28 114 H BP Pulse Ox O2 Del Method 08/22/24 08:04 96 Room Air 08/22/24 04:17 93 Room Air 08/21/24 23:43 Room Air 08/21/24 23:43 135/87 Room Air 08/21/24 23:01 138/89 98 Room Air 08/21/24 22:30 95 Room Air 08/21/24 22:18 97 08/21/24 22:17 149/111 H 96 Room Air 08/21/24 21:33 96 Room Air 08/21/24 21:28 Laboratory Results Laboratory Results - last 24 hr 08/21/24 08/21/24 08/21/24 12:52 13:43 14:25 WBC 6.30 RBC 4.39 L Hgb 15.4 Hct 43.4 MCV 98.9 MCH 35.1 H MCHC 35.5 RDW Std Deviation 47.3 H RDW Coeff of Cale 12.9 Plt Count 264 MPV 9.1 L Immature Gran % (Auto) 0.3 Neut % (Auto) 65.5 Lymph % (Auto) 21.7 Payette % (Auto) 10.0 Eos % (Auto) 2.2 Baso % (Auto) 0.3 Neut # (Auto) 4.12 Lymph # (Auto) 1.37 Payette # (Auto) 0.63 H Eos # (Auto) 0.14 Baso # (Auto) 0.02 Immature Gran # (Auto) 0.02 PT Cancelled 11.2 INR Cancelled 1.0 APTT Cancelled 29 PTT Ratio Cancelled 1.1 Sodium 140 Potassium 4.6 Chloride 106 Carbon Dioxide 26 Anion Gap 8 BUN 18 Creatinine 1.07 Est Cr Clr Drug Dosing 92.9 eGFR 74.19 BUN/Creatinine Ratio 16.8 Glucose 151 H POC Glucose Calcium 9.4 Phosphorus 4.1 Magnesium 1.7 Total Bilirubin 0.8 AST 21 ALT 26 Alkaline Phosphatase 54 Troponin I High Sens 6.4 Total Protein 7.0 Albumin 4.6 Globulin 2.4 L Albumin/Globulin Ratio 1.9 TSH 1.408 Adenovirus (PCR) Not Detected B. pertussis DNA (PCR) Not Detected B.parapertussis DNA PCR Not Detected C. pneumoniae DNA (PCR) Not Detected Coronavirus OC43 (PCR) Not Detected Coronavirus HKU1 (PCR) Not Detected Coronavirus 229E (PCR) Not Detected SARS-CoV-2 (PCR) Not Detected Coronavirus NL63 (PCR) Not Detected Human Metapneumovir PCR Not Detected Influenza Type A (PCR) Not Detected Influenza Type B (PCR) Not Detected M. pneumoniae (PCR) Not Detected Parainfluenza 1 (PCR) Not Detected Parainfluenza 2 (PCR) Not Detected Parainfluenza 3 (PCR) Not Detected Parainfluenza 4 (PCR) Not Detected RSV (PCR) Not Detected Entero/Rhino (PCR) Not Detected 08/22/24 07:01 WBC RBC Hgb Hct MCV MCH MCHC RDW Std Deviation RDW Coeff of Cale Plt Count MPV Immature Gran % (Auto) Neut % (Auto) Lymph % (Auto) Payette % (Auto) Eos % (Auto) Baso % (Auto) Neut # (Auto) Lymph # (Auto) Payette # (Auto) Eos # (Auto) Baso # (Auto) Immature Gran # (Auto) PT INR APTT PTT Ratio Sodium Potassium Chloride Carbon Dioxide Anion Gap BUN Creatinine Est Cr Clr Drug Dosing eGFR BUN/Creatinine Ratio Glucose POC Glucose 121 H Calcium Phosphorus Magnesium Total Bilirubin AST ALT Alkaline Phosphatase Troponin I High Sens Total Protein Albumin Globulin Albumin/Globulin Ratio TSH Adenovirus (PCR) B. pertussis DNA (PCR) B.parapertussis DNA PCR C. pneumoniae DNA (PCR) Coronavirus OC43 (PCR) Coronavirus HKU1 (PCR) Coronavirus 229E (PCR) SARS-CoV-2 (PCR) Coronavirus NL63 (PCR) Human Metapneumovir PCR Influenza Type A (PCR) Influenza Type B (PCR) M. pneumoniae (PCR) Parainfluenza 1 (PCR) Parainfluenza 2 (PCR) Parainfluenza 3 (PCR) Parainfluenza 4 (PCR) RSV (PCR) Entero/Rhino (PCR) Diagnostic Findings Telemetry personally reviewed: Atrial flutter with heart rates mostly in the 90s to 110s. Labs reviewed and notable for normal potassium, stable renal function, normal magnesium, normal TSH, normal blood counts. ECG personally reviewed 08/21/2024: Atrial flutter 111 bpm. Poor R wave progression. History and physical report reviewed. Chest x-ray 08/21/2024: No acute disease per radiology. Images personally reviewed: No obvious infiltrate or pleural effusion. Medications Administered Current Inpatient Medications Acetaminophen (Acetaminophen 325 Mg Tab) 650 mg PO Q4H PRN PRN Reason: pain/fever Stop: 09/20/24 23:30 Apixaban (Apixaban 5 Mg Tablet) 5 mg PO BID MARIANELA Stop: 09/21/24 08:59 Last Admin: 08/22/24 07:45 Dose: 5 mg Atenolol (Atenolol 25 Mg Tablet) 50 mg PO QAM COUNTS INCLUDE 234 BEDS AT THE [facility] Stop: 09/21/24 08:59 Last Admin: 08/22/24 07:46 Dose: 50 mg Atenolol (Atenolol 25 Mg Tablet) 25 mg PO PM COUNTS INCLUDE 234 BEDS AT THE [facility] Stop: 09/21/24 20:59 Atorvastatin Calcium (Atorvastatin 40 Mg Tab) 40 mg PO QPM COUNTS INCLUDE 234 BEDS AT THE [facility] Stop: 09/21/24 20:59 Cyclobenzaprine HCl (Cyclobenzaprine Hcl 10 Mg Tab) 10 mg PO TID PRN PRN Reason: muscle spasm Stop: 09/21/24 00:18 Dextrose (Dextrose 50% 50 Ml Syringe) 25 - 50 ml IV UD PRN; Protocol PRN Reason: Hypoglycemia Protocol Stop: 09/21/24 01:16 Flecainide Acetate (Flecainide Acetate 100 Mg Tablet) 150 mg PO Q12 COUNTS INCLUDE 234 BEDS AT THE [facility] Stop: 09/21/24 08:59 Last Admin: 08/22/24 07:46 Dose: 150 mg Glucagon (Glucagon For Inj 1 Mg Vial) 1 mg SQ UD PRN; Protocol PRN Reason: Hypoglycemia Protocol Stop: 09/21/24 01:16 Glucose (Glucose 40% Gel 15 Gm Tube) 15 - 30 gm PO UD PRN; Protocol PRN Reason: Hypoglycemia Protocol Stop: 09/21/24 01:16 Glucose (Glucose 10 Tab/Tube) 4 - 8 tab PO UD PRN; Protocol PRN Reason: Hypoglycemia Protocol Stop: 09/21/24 01:16 Lisinopril (Lisinopril 10 Mg Tab) 10 mg PO DAILY MARIANELA Stop: 09/21/24 08:59 Last Admin: 08/22/24 07:47 Dose: 10 mg Lorazepam (Lorazepam 2 Mg/1 Ml Vial) 1 mg IV ONE PRN; Protocol PRN Reason: EtoH Withdrawal AWSS 6-10 Miscellaneous (Carbohydrates For Hypoglycemia ) 15 - 30 gm PO UD PRN PRN Reason: Hypoglycemia Protocol Stop: 09/21/24 01:16 Ondansetron HCl (Ondansetron Inj 2 Mg/Ml 2 Ml Vial) 4 mg IV Q6H PRN PRN Reason: Nausea Stop: 09/20/24 23:30 PG Care Time/CCT Total # of Minutes Spent Total Time Spent with Patient: Total time spent is greater than 50% in coordination of care (as documented) at patient's floor/unit and/or counseling patient: Coding Level of Care Code 05587 INT INP/OBS CARE MIN Diagnoses Paroxysmal atrial flutter I48.92 On apixaban therapy Z79.01 Essential hypertension I10 Hypertension type: essential hypertension (3) Hypertension Hypertension type: essential hypertension Qualified Code(s): I10 - Essential (primary) hypertension
--- NOTE | 2024-08-22 10:14 | Anesthesiology Consultation ---
Date of Service August 22, 2024 Assessment & Plan (1) Encounter for pre-operative examination: Chart Review Chart Review: Acceptable Risk for Surgery and Patient NOT seen in Pre Admission Testing Consults Requested none History Surgery Operation Date: 08/22/24 13:00 Proposed Procedures p Cardioversion - Tyler Wright MD Height/Weight Height: 6 ft Weight: 141.8 kg Allergies Allergy/AdvReac Type Severity Reaction Status Date / Time clarithromycin Allergy Mild HALLUCINATI Verified 07/23/24 09:22 ONS Medications Home Medications Medication Instructions Recorded Confirmed Last Taken CPAP Supplies #1 ea 06/14/19 07/23/24 Unknown cholecalciferol (vitamin D3) 50 2,000 units PO QAM #30 tabs 07/03/19 07/23/24 11/02/21 mcg (2,000 unit) tablet krill oil 500 mg capsule 500 mg PO QAM 07/03/19 07/23/24 11/03/21 latanoprost (PF) 0.005 % eye drops 1 drp ophthalmic (eye) PM 10/28/21 07/23/24 11/03/21 flecainide 150 mg tablet 150 mg PO Q12H #180 tabs 10/24/23 07/23/24 Unknown metformin 1,000 mg tablet 1,000 mg PO BID #180 tabs 11/21/23 07/23/24 Unknown atorvastatin 40 mg tablet 40 mg PO QPM #90 tabs 05/10/24 07/23/24 Unknown atenolol 25 mg tablet See Rx Instructions PO DAILY #270 05/21/24 07/23/24 Unknown tabs sildenafil 100 mg tablet 50 - 100 mg (0.5 - 1 x 100 mg) PO 07/09/24 07/23/24 Unknown DAILY PRN sexual activity #30 tabs cyclobenzaprine 10 mg tablet 10 mg PO TID PRN muscle spasm #30 07/10/24 07/23/24 Unknown tabs apixaban 5 mg tablet (Eliquis) 5 mg PO BID Afib #180 tabs 08/06/24 Unknown lisinopril 10 mg tablet 10 mg PO DAILY #90 tabs 08/09/24 Unknown Active Medications Generic Name Dose Route Start Last Admin Trade Name Freq PRN Reason Stop Dose Admin Apixaban 5 mg 08/22/24 09:00 08/22/24 07:45 Apixaban 5 Mg Tablet PO 09/21/24 08:59 5 mg BID MARIANELA Administration Atenolol 50 mg 08/22/24 09:00 08/22/24 07:46 Atenolol 25 Mg Tablet PO 09/21/24 08:59 50 mg QAM MARIANELA Administration Flecainide Acetate 150 mg 08/22/24 09:00 08/22/24 07:46 Flecainide Acetate 100 Mg Tablet PO 09/21/24 08:59 150 mg Q12 MARIANELA Administration Lisinopril 10 mg 08/22/24 09:00 08/22/24 07:47 Lisinopril 10 Mg Tab PO 09/21/24 08:59 10 mg DAILY MARIANELA Administration Past Medical History Medical History Dyspnea on exertion Hypertension Nocturnal hypoxemia Obstructive sleep apnea Obesity Paroxysmal atrial fibrillation follows with Dr. Wright--on eliquis Alcohol abuse On anticoagulant therapy eliquis daily Eye pressure denies glaucoma Former smoker Past Family History Family History Father Diabetes Other No family history of adverse response to anesthesia Denies family history of Ovarian cancer Prostate cancer Myocardial infarction Breast cancer Colorectal cancer Past Surgical History Surgical History History of wisdom tooth extraction History of bilateral cataract extraction History of tonsillectomy (1958) History of rhinoplasty S/P colonoscopic polypectomy Social History Smoking Status: Former smoker Do You Dip or Chew Tobacco: No Hx Alcohol Use: Yes Alcohol type: beer alcohol intake frequency: 0-2 drinks per day Hx Substance Use: No substance use type: does not use Physical Exam Vital Signs Last Vital Signs Temp 36.6 C 08/22/24 08:04 Pulse 109 H 08/22/24 08:04 Resp 18 08/22/24 08:04 BP 151/93 H 08/22/24 08:04 Pulse Ox 96 08/22/24 08:04 O2 Del Method Room Air 08/22/24 08:04 Testing Laboratory Results 08/21/24 12:52 08/21/24 12:52 PT 11.2 Seconds (9.0-12.0) 08/21/24 14:25 INR 1.0 (0.9-1.1) 08/21/24 14:25 APTT 29 Seconds (21-31) 08/21/24 14:25 08/22/24 07:01 POC Glucose 121 H Electrocardiogram Date: 08/21/24 HR 111. A flutter with variable AV block. Possible anterior infarct, age undetermined. Abnormal ECG. Chest X-Ray Date: 08/21/24 XR chest 1V portable CLINICAL HISTORY: Chest pain, nonspecific TECHNIQUE: Single frontal radiograph of the chest was obtained. Comparison: Comparison is made to chest radiograph 07/09/2015 FINDINGS: Exam is limited by underpenetration. The cardiomediastinal silhouette is normal. The lungs are clear. No evidence of pleural effusion or pneumothorax. IMPRESSION: No acute chest disease.
[2024-08-22] MEDS ORDERED: PROPOFOL IV EMULSION 10 MG/ML 20 ML VIAL IV ONE (10:17)
[2024-08-22 10:45] VITALS: RESP 14
--- NOTE | 2024-08-22 10:54 | Anesthesiology Progress Note ---
Date of Service August 22, 2024 Anesthesia Post Procedure Vital Signs Vital Signs: Temp Pulse Pulse Pulse Resp BP BP 08/22/24 10:39 96 H 14 08/22/24 08:04 36.6 C 109 H 18 151/93 H 08/22/24 04:17 36.7 C 110 H 16 138/91 08/21/24 23:43 08/21/24 23:43 36.6 C 107 H 16 08/21/24 23:01 108 H 20 08/21/24 22:30 105 H 22 136/90 08/21/24 22:18 101 H 25 H 08/21/24 22:17 103 H 20 08/21/24 21:33 104 H 24 08/21/24 21:28 114 H 08/21/24 20:00 109 H 20 144/99 H 08/21/24 20:00 112 H 22 144/99 H 08/21/24 19:33 109 H 23 129/91 08/21/24 19:10 107 H 22 130/104 H 08/21/24 18:26 109 H 129/101 H 08/21/24 18:11 109 H 131/97 08/21/24 17:40 113 H 144/91 H 08/21/24 17:35 112 H 08/21/24 17:25 116 H 138/95 08/21/24 17:00 109 H 18 08/21/24 16:14 105 H 107/86 08/21/24 15:59 108 H 111/90 08/21/24 15:00 108 H 16 08/21/24 13:09 108 H 08/21/24 13:05 107 H 18 08/21/24 13:05 18 08/21/24 13:05 08/21/24 12:42 36.8 C 111 H 20 198/99 H BP Pulse Ox O2 Del Method 08/22/24 10:39 119/95 96 Room Air 08/22/24 08:04 96 Room Air 08/22/24 04:17 93 Room Air 08/21/24 23:43 Room Air 08/21/24 23:43 135/87 Room Air 08/21/24 23:01 138/89 98 Room Air 08/21/24 22:30 95 Room Air 08/21/24 22:18 97 08/21/24 22:17 149/111 H 96 Room Air 08/21/24 21:33 96 Room Air 08/21/24 21:28 08/21/24 20:00 97 Room Air 08/21/24 20:00 98 Room Air 08/21/24 19:33 96 08/21/24 19:10 95 Room Air 08/21/24 18:26 08/21/24 18:11 08/21/24 17:40 08/21/24 17:35 08/21/24 17:25 08/21/24 17:00 129/101 H 96 Room Air 08/21/24 16:14 08/21/24 15:59 08/21/24 15:00 101/82 97 Room Air 08/21/24 13:09 08/21/24 13:05 96 Room Air 08/21/24 13:05 158/93 H 96 Room Air 08/21/24 13:05 96 Room Air 08/21/24 12:42 95 Transfer of Care Handoff Completed per policy Notes Mental Status: alert / awake / arousable and participated in evaluation Patient Amnestic to Procedure: Yes Nausea / Vomiting: adequately controlled Pain: adequately controlled Airway Patency, RR, SpO2: stable & adequate BP & HR: stable & adequate Hydration State: stable & adequate Anesthetic Complications: no major complications apparent and Pt Satisfied with anesthetic care
[2024-08-22 10:57] VITALS: O2SAT 98
--- NOTE | 2024-08-22 10:57 | Cardioversion ---
Date of Service August 22, 2024 PG Electrical Cardioversion Rp Electrical Cardioversion Report Procedure: DC cardioversion (elective). Indication: Symptomatic atrial flutter. Informed written consent: Obtained. Sedation: Provided by anesthesia. Anticoagulation therapy: Therapeutic Eliquis for at least 4 weeks without interruption. Time out: Performed. Antiarrhythmic therapy: Flecainide 150 mg twice daily. Procedural details: Once sufficiently sedated, 100 J were delivered in a synchronized fashion which successfully converted atrial flutter to sinus rhythm. He remained hemodynamically stable throughout. There were no known complications at the time of this note. Plan: 1. Continue anticoagulation therapy without interruption for at least 4 weeks following cardioversion. 2. Continue flecainide for now. 3. Keep scheduled appointment with electrophysiology to discuss atrial flutter ablation (August 2024). Coding Level of Care Code 35322 CARDIOVERSION, ELECTIVE Additional Codes Electrical Cardioversion Report ([id number])
[2024-08-22 11:12] VITALS: PULSE 66
[2024-08-22 11:16] VITALS: BP 138/76
--- NOTE | 2024-08-22 12:53 | Discharge Summary ---
Discharge Summary Date of Service August 22, 2024 Principal Dx & Hospital Course #1 = Principal Diagnosis (1) Paroxysmal atrial flutter: 69yo male with history of paroxysmal atrial flutter presenting with atrial flutter ongoing for the last day. Patient is fairly symptomatic with this - reports some dizziness earlier in the day causing him to pull his car over. Also with some SOB and irritability, diaphoresis earlier. No LOC or falls. Patient is compliant with his Apixaban 5mg po BID and denies missing any doses. Patient follows with Cardiology Patient received IV magnesium. Was seen by cardiology and underwent cardioversion with Dr. Wright on 08/22. He remained in sinus rhythm on telemetry monitoring after cardioversion. Recommended to continue flecainide and Eliquis at current dosing and to keep follow-up appointment with Dr. Gastelum on 09/03 to discuss ablation. (2) Hypertension: Chronic, stable. -Continue Lisinopril 10mg po daily (3) Dyslipidemia: Chronic. Stable -Continue Lipitor 40mg po qPM (4) Obstructive sleep apnea: Chronic. Stable. Patient reports compliance with his CPAP (5) Type 2 diabetes mellitus: Patient with Type 2 DM - well controlled on Metformin 1000mg po BID with last Hgb A1C=5.7 on 06/30/24 Continue home metformin at discharge Plan EtOH daily intake - patient reports drinking 4 drinks per night. No history of withdrawal. -AWSS at risk protocol - did not require any Ativan dispo: Discharge to home today updated at bedside 08/22 Admission HPI Per Admitting Provider Seferino Whitt is a 69yo male with history of HTN, HLP, DM, Paroxysmal atrial fibrillation on Apixaban anticoagulation and MÓNICA on CPAP presenting from home with atrial fibrillation. Patient reports he was driving yesterday and became suddenly lightheaded and "disassociated" for a few moments. He pulled the car over and the sensation passed. Last evening he got up to let the dogs out and he reports becoming very short of breath after walking back up the stairs. He felt that his heart was bounding. He checked his pulse ox which was acceptable but his HR was in the 140's and irregular. His diastolic blood pressure was also elevated at around 95. He was able to fall asleep but when he woke this morning he still did not feel well still with elevated HR as well as some lethargy, shortness of breath and irritability. He also reports significant diaphoresis. He denies chest pain or current dizziness. No LOC. No additional complaints at this time. Patient reports that he is rarely in atrial fibrillation. He follows with Cardiology and is scheduled for an ablation with Dr. Gastelum on 09/03/24 He has been compliant with his Apixaban and has not missed any doses. He reports taking his PM dose today. In the ER patient afebrile, in atrial fibrillation with rates ranging 101- 112. Blood pressure has been acceptable ER Course: NSS x 1L Metoprolol 5mg IV x 3 doses Flecainide 150mg po Discharge Exam General: NAD, VS as above, sitting up in bed, very pleasant Resp: normal respiratory effort, lungs clear to auscultation CV: irregular, borderline tachycardic, no murmur, Abd: normal bowel sounds, non tender, no hepatosplenomegaly Extremities: Moves all extremities, trace edema Neuro: A&O x3, Skin: intact, no lesions noted Discharge Plan Discharge Items Patient Disposition: Home - Self-Care Reason For Visit: AF WITH RVR Discharge Diagnosis: A flutter Activity: Resume your previous activity Driving/Machine Use: No limitations Weightbearing: Full weightbearing Non-emergency contact: Primary Care Provider and [employer] Operator Call non-emergency contact if: you have any medication questions and your symptoms worsen Follow-up/Referrals: Rick Nascimento III, CRNP [Primary Care Provider] - 09/03/24 4:00 pm () Lloyd Gastelum MD [Physician] - 09/03/24 1:00 pm () Diet: Heart Healthy Addtl Attending Provider Instructions: Mr. Whitt You were hospitalized after having sustained atrial flutter. This was treated with cardioversion by Dr. Wright. He recommended that you remain on your flecainide and Eliquis and keep your appointment with Dr. Gasteulm to discuss ablation. No changes were made to your home medications. If you experience another episode where you think you are in A-fib please contact your algology teacher or return to the emergency room. Follow-up appointments: Make an appointment with your primary care physician within one week of discharge. A copy of this summary will be sent to them. Every time you see your primary care physician, or any other doctor, bring your medication list, and a list of questions. CONTACT YOUR PRIMARY CARE PROVIDER if you experience any of the following: Shortness of breath or difficulty breathing Fevers or chills Feeling tired with normal activity or experiencing dizziness or fainting Difficulty following your treatment plan, or difficulty taking medications CALL 911 OR GO TO THE EMERGENCY DEPARTMENT if you experience any of the following: Severe abdominal pain or nausea/vomiting Severe chest pain, or chest pain that radiates (moves) to your jaw or arm Sudden, severe shortness of breath or difficulty breathing Thank you for allowing us to participate in your care. `Kim Griffin PA-C Pending Studies at Discharge: No Stand-Alone Forms: [facility] [employer], Smoking Cessation Medications and DC Order Prescriptions: Continued flecainide 150 mg tablet 150 mg PO Q12H Qty: 180 3RF metformin 1,000 mg tablet 1,000 mg PO BID Qty: 180 3RF atenolol 25 mg tablet See Rx Instructions PO DAILY Qty: 270 3RF Rx Instructions: TAKE 2 TABLETS (50 MG) IN MORNING AND 1 TABLET (25 MG) IN EVENING sildenafil 100 mg tablet 50 - 100 mg PO DAILY PRN (Reason: sexual activity) Qty: 30 1RF Eliquis 5 mg tablet 5 mg PO BID Qty: 180 3RF lisinopril 10 mg tablet 10 mg PO DAILY Qty: 90 3RF (DME) CPAP Supplies Misc See Dose Instructions .ROUTE .MEDSUPPLY Qty: 1 0RF Dose Instruction: As directed Rx Instructions: mask, tubing, filts and all necessar CPAP supplies cholecalciferol (vitamin D3) 2,000 unit tablet 2,000 units PO QAM Qty: 30 krill oil 500 mg capsule 500 mg PO QAM atorvastatin 40 mg tablet 40 mg PO QPM Qty: 90 3RF cyclobenzaprine 10 mg tablet 10 mg PO TID PRN (Reason: muscle spasm) Qty: 30 0RF latanoprost (PF) 0.005 % Drops 1 drp OPHTHALMIC (EYE) PM Discharge Orders: Discharge Order (Routine); Ordered 08/22/24 Ordered By: Kim Griffin Admission Data Admit Date/Time: 08/21/24 21:48 Attending Provider: Adriel Eduardo Admit Provider: Jeanne Contreras Primary Care Provider: Rick Nascimento III Other Providers: Ivis Camejo; Jeanne Contreras; Shanna Garcia; Melva Frazier; Fabby Fonseca; Digna Vazquez; Ar Amor; Asaf Portillo; Fawad Urbina; Ab Thornton; Grace Thornton; Juan Adams; Kavita Jade; Jose Manuel Ferguson; Daniel Delgado; Jayy Vail; Dyan Connor; Umberto Garcia; Sophy Garcia; Davin Rapp; Candelaria Noriega; Mauro Treadwell; Leena Inman; Ying Mckeon; Star Siu; Jeanne Quiles; Karol Arana; Mireille Carbajal; Sandy Gauthier; Hola Gauthier V; Delgado Taylor; Melva Davis; Joni Gillette; Ingrid Werner; Hola Peña; Juan Connor; Sandor Pennington; Jodi Seals; Bijal Bacon; Hola Joyce; Blake Fletcher; Rubina Hutson; Damion Gonzalez; Za Sierra; Kelley Nichole; Landon Delgado; Severiano Echevarria; Jillian Hoffman; Karley Wilson.; Vikki Craig; Clarence Rodriguez; Lloyd Onofre; Ar Caballero Jr; Kina Bennett; Ayesha Booth A.; Maria Del Carmen Spann; Star Martinez; Ab Arteaga; Chana Ballesteros SRosi; Ayesha Alvarado A.; Matthew Guzman; Jr Cartagena; Louie Correa; Dave Osei; Ai Miranda; Chandler Gautam; Josette Allen; Fidelia Helm; Shira Beltran; Kayli Soares; Stuart Butler Jr; Lucy Menchaca; Jeanne Crow; Srinath Smyth Other Interventions: Discharge Summary Assessment (RN) Last Done: 08/22/24 13:42 Hospital Stay Data Consultations 08/21/24 20:30 ED Decision to Admit Stat 08/21/24 21:48 Consult Cardiology Routine 08/22/24 09:18 Consult Anesthesiology Routine Procedures Performed Operation Date: 08/22/24 13:00 Actual Procedures p Cardioversion - Tyler Wright MD Pending Results Patient Have Any Pending Studies at Discharge: No Discharge Instructions Given to Patient (Per Discharging Provider) Mr. Jose Eduardo Rincon were hospitalized after having sustained atrial flutter. This was treated with cardioversion by Dr. Wright. He recommended that you remain on your flecainide and Eliquis and keep your appointment with Dr. Gastelum to discuss ablation. No changes were made to your home medications. If you experience another episode where you think you are in A-fib please contact your algology teacher or return to the emergency room. Follow-up appointments: Make an appointment with your primary care physician within one week of discharge. A copy of this summary will be sent to them. Every time you see your primary care physician, or any other doctor, bring your medication list, and a l ist of questions. CONTACT YOUR PRIMARY CARE PROVIDER if you experience any of the following: Shortness of breath or difficulty breathing Fevers or chills Feeling tired with normal activity or experiencing dizziness or fainting Difficulty following your treatment plan, or difficulty taking medications CALL 911 OR GO TO THE EMERGENCY DEPARTMENT if you experience any of the following: Severe abdominal pain or nausea/vomiting Severe chest pain, or chest pain that radiates (moves) to your jaw or arm Sudden, severe shortness of breath or difficulty breathing Thank you for allowing us to participate in your care. Jose Griffin PA-C Supervising Physician Co-Signing Physician Notes Attending Attestation & Discharge Note: Chart reviewed, discharge care plan d/w DEUCE Griffin. I agree w/ the lazcano components of her discharge summary. Of note - I did not perform a bedside visit or physical exam. 69yo male with history of paroxysmal atrial flutter on Eliquis & flecainide who presented with recurrent rapid atrial flutter. Following admission was seen by Dr Norberto Wright, [facility] Cardiology, and underwent successful cardioversion. He remained in NSR for the remainder of his brief stay. He will continue Eliquis, atenolol, & flecainide upon discharge home. Adriel Eduardo MD Total Time Total Time Spent Total Time Spent (In Minutes): Time spent day of discharge 38 minutes including direct patient care, medication reconciliation, documentation, review of labs and images, and coordination of care. Coding Level of Care Code 66571 INP/OBS DISCH >30 MIN Diagnoses Paroxysmal atrial flutter I48.92 Essential hypertension I10 Hypertension type: essential hypertension Dyslipidemia E78.5 Obstructive sleep apnea G47.33 Type 2 diabetes mellitus without complication, without long-term current use of insulin E11.9 Diabetes mellitus complication status: without complication Diabetes mellitus intermediate designer insulin use: without intermediate designer use
[2024-08-22] MEDS ORDERED: ATENOLOL 25 MG TABLET PO SCH (21:00)
[2024-08-22] MEDS ORDERED: ATORVASTATIN 40 MG TAB PO SCH (21:00)
--- NOTE | 2024-08-22 21:40 | Electrocardiogram Report ---
Test Reason : Blood Pressure : */* mmHG Vent. Rate : 111 BPM Atrial Rate : 227 BPM P-R Int : * ms QRS Dur : 96 ms QT Int : 322 ms P-R-T Axes : * 70 61 degrees QTcB Int : 437 ms Atrial flutter with variable A-V block Possible Anterior infarct , age undetermined Abnormal ECG When compared with ECG of 15-Jun-2023 07:31, Atrial flutter has replaced Sinus rhythm Vent. rate has increased by 53 bpm QRS duration has decreased Non-specific change in ST segment in Inferior leads Confirmed by Tyler Wright ([id number]) on 08/22/2024 9:40:16 PM Referred By: Confirmed By: Tyler Wright
--- NOTE | 2024-08-22 21:40 | Electrocardiogram Report ---
Test Reason : Blood Pressure : */* mmHG Vent. Rate : 66 BPM Atrial Rate : 66 BPM P-R Int : 246 ms QRS Dur : 110 ms QT Int : 418 ms P-R-T Axes : 55 26 50 degrees QTcB Int : 438 ms Sinus rhythm with 1st degree A-V block Otherwise normal ECG When compared with ECG of 21-Aug-2024 12:48, Sinus rhythm has replaced Atrial flutter Vent. rate has decreased by 45 bpm Confirmed by Tyler Wright ([id number]) on 08/22/2024 9:40:25 PM Referred By: REFERRED SELF Confirmed By: Tyler Wright
== END 2024-08-22 14:25 | disposition home or self-care (01) ==
LOC: ED 12:38 → 2N 12:38 → SUATTDRO 21:48 → 2N 23:01